=== PATIENT | female | born 1940 | race Caucasian/White ===

== ENCOUNTER 2019-02-02 08:45 | Inpatient (IN) ==
[~2019-02-02 08:45] MED LIST: RAPID SEQUENCE INDUCTION BAG ONE
[2019-02-02] MEDS ORDERED: methylPREDNISolone 125 MG/2 ML VIAL IV STA (08:55)
[2019-02-02] MEDS ORDERED: LORazepam 1 MG/2 ML VIAL IV STA (08:55)
[2019-02-02] MEDS ORDERED: NITROGLYCERIN/D5W 100 MCG/ML BTL ONE (08:59)
[2019-02-02] MEDS ORDERED: NITROGLYCERIN/D5W 100MCG/ML 250 ML IV SCH (09:00)
[2019-02-02 09:12] LABS: iSTAT Creatinine 2.6 mg/dl (0.6-1.3); iSTAT Hemoglobin 13.3 g/dl (12.0-16.0); iSTAT Ionized Calcium 1.18 mmol/l (1.12-1.32); iSTAT Potassium 4.1 mEq/L (3.3-5.0)
[2019-02-02 09:17] LABS: Hematocrit (blood only) 39.5 % (37-47); Hemoglobin 12.6 g/dL (12.0-16.0); Mean Corpuscular Hemoglobin 30.1 pg (25-34); Mean Corpuscular Hgb Conc 31.9 g/dL (32-36); Mean Corpuscular Volume 94.3 fL (80-100); Mean Platelet Volume 11.1 fL (7.4-10.4); Platelet Count 429 K/uL (130-400); RDW Coefficient of Variation 14.3 % (11.5-14.5); RDW Standard Deviation 48.9 fL (36.4-46.3); Red Blood Count 4.19 M/uL (4.2-5.4); White Blood Count 16.42 K/uL (4.8-10.8)
[2019-02-02] MEDS ORDERED: PROPOFOL IV EMULSION 10 MG/ML 100 ML VIAL IV ONE (09:25)
[2019-02-02 09:32] LABS: iSTAT Arterial Blood Gas HCO3 16 meg/L (19-24); iSTAT Arterial Blood Gas pCO2 44 mmHg (35-46); iSTAT Arterial Blood Gas pH 7.18 (7.35-7.45); iSTAT Arterial Blood Gas pO2 61 mmHg (80-95); iSTAT Carbon Dioxide 18 mEq/l (24-31); iSTAT Hematocrit 36 % (37-47); iSTAT Hemoglobin 12.2 g/dl (12.0-16.0); iSTAT Potassium 3.7 mEq/L (3.3-5.0); iSTAT Sodium 138 mEq/L (135-144)
[2019-02-02 09:33] LABS: Alanine Aminotransferase 12 U/L (12-78); Albumin Level 3.3 gm/dl (3.4-5.0); Aspartate Aminotransferase 19 U/L (15-37); BUN Creatinine Ratio 9.7 (10-20); Bilirubin Direct 0.1 mg/dl (0-0.2); Blood Urea Nitrogen 24 mg/dl (7-18); Calcium 9.1 mg/dl (8.5-10.1); Carbon Dioxide 17 mmol/L (21-32); Chloride 107 mmol/L (98-107); Est GFR (African American) 21.5; Est GFR (Non-African American) 18.6; Glucose 285 mg/dl (70-99); Lipase 198 U/L (73-393); Magnesium 2.2 mg/dl (1.8-2.4); Sodium 135 mmol/L (136-145)
[2019-02-02 09:38] LABS: Alkaline Phosphatase 180 U/L (45-117); Bilirubin,Total 0.5 mg/dl (0.2-1); NT Pro B Type Natriuretic Pept 1456 pg/ml (0-1800); Total Protein 8.7 gm/dl (6.4-8.2); Troponin I < 0.015 ng/ml (0-0.045)
[2019-02-02 09:41] LABS: Basophils # (auto) 0.04 K/uL (0-0.2); Basophils % (auto) 0.2 %; Eosinophils # (auto) 0.55 K/uL (0-0.5); Eosinophils % (auto) 3.3 %; Immature Granulocytes # (auto) 0.06 K/uL (0.00-0.02); Immature Granulocytes % (auto) 0.4 %; Lymphocytes % (auto) 31.7 %; Monocytes # (auto) 1.13 K/uL (0.11-0.59); Monocytes % (auto) 6.9 %; Neutrophils # (auto) 9.44 K/uL (1.4-6.5); Neutrophils % (auto) 57.5 %
--- NOTE | 2019-02-02 09:42 | XRay Report ---
XR chest 1V portable CLINICAL HISTORY: 79 years-old Female presenting with sunitha. TECHNIQUE: Portable upright AP view of the chest was obtained. COMPARISON: 02/02/2019 at 8:52 a.m.. FINDINGS: Endotracheal tube terminates in the mid thoracic trachea. Cardiomediastinal silhouette normal. Diffus e opacities throughout both lungs with bronchial wall thickening similar to prior. No large pleural e ffusion or pneumothorax. Degenerative changes of the thoracic spine. Upper abdomen normal. IMPRESSION: 1. Appropriately positioned endotracheal tube. 2. Similar appearance of diffuse pulmonary infiltrates likely moderate pulmonary edema, multifocal i nfection, or diffuse alveolar damage. Electronically signed by: Diego Collins M.D. 02/02/2019 9:40 AM
--- NOTE | 2019-02-02 09:53 | XRay Report ---
XR chest 1V portable CLINICAL HISTORY: Respiratory distress COMPARISON STUDY: No previous studies for comparison. FINDINGS: The heart is at the upper limits of normal in size. There are diffuse bilateral pulmonary a irspace opacities. Diagnostic considerations include pulmonary edema, multifocal pneumonia, or diffus e alveolar hemorrhage.[ IMPRESSION: Diffuse bilateral pulmonary airspace opacities. Electronically signed by: Vlad Campa M.D. 02/02/2019 9:30 AM
[2019-02-02 09:55] LABS: INR 1.1 (0.9-1.1); Prothrombin Time 11.1 Seconds (9.0-12.0)
[2019-02-02] MEDS ORDERED: fentaNYL DRIP 1,250 MCG/250 ML BAG IV SCH (10:00)
[2019-02-02 10:17] LABS: Influenza A virus by PCR Neg for Influ A (Neg); Influenza B virus by PCR Neg for Influ B (Neg)
[2019-02-02] MEDS ORDERED: CEFEPIME 2,000 MG/20 ML VIAL IV STA (10:19)
[2019-02-02] MEDS ORDERED: VANCOMYCIN HCL 1,750 MG in SODIUM CHLORIDE 0.9% 500 ML IV ONE (10:19)
[2019-02-02] MEDS ORDERED: VANCOMYCIN CONSULT ACTIVE PRN (10:19)
[2019-02-02 10:56] LABS: D Dimer 1800 ug/L FEU (0-500)
--- NOTE | 2019-02-02 11:55 | History & Physical Report ---
Date of Service February 02, 2019 Assessment & Plan (1) Admitted to intensive care unit: (2) Acute respiratory failure with hypoxia: (3) Respiratory acidosis: (4) Lactic acidemia: This is a 79-year-old female who has significant past medical history of COPD, chronic diastolic CHF, hypertension, CKD stage IV baseline creatinine 2.02.4, anemia of renal disease, psoriatic arthritis, PMR, secondary hyperparathyroidism, history of MGUS who presents to [facility] ED secondary to respiratory distress. In ED patient presented in respiratory distress requiring eventual mechanical intubation Lab work revealed elevated WBC 16 point 4K, H&H 12.6 and 39.5, platelet 429 ref erred neutrophilia, lymphocytosis and eosinophilia Initial blood gas revealed pH 7.18, bicarb 16, PCO2 44, elevated methylhemoglobin 2.7 BUN/creatinine stable at 24 and 2.43, glucose 285, initial lactate elevated at 5.7 with repeat of 2.0, troponin WNL, proBNP 1456 Influenza negative Pt with acute hypoxic respiratory failure with respiratory acidosis, lactic acidosis, elevated methylhemoglobin of uncertain etiology ddx: Decompensated CHF, myocardial ischemia, PE, infectious PNA, diffuse alveolar hemorrhage among other etiologies please defer to aircraft electrician consultation for further assessment and management (5) CHF (congestive heart failure): LVEF 68%, grade 2 diastolic dysfunction, mild concentric LVH, left atrium mildly enlarged, mild aortic valve sclerosis and mild AV regurg present echo 09/2017 Stat echo ordered defer management to [employer] (6) CAD (coronary artery disease): according to [facility] records pt presented to [place] hosp 08/26 2/2 acute on SOB and found to have elevated troponin Underwent cardiac cath which revealed chronic occluded RCA as well as obtuse marginal disease, recommended medical management on ASA, statin, coreg as outpt stat echocardiogram ordered trend troponin q4h (7) HTN (hypertension): pt significantly hypertensive in ED, likely in setting of recent mechanical ventilation titration of anesthetic per attending, improving pt on amlodipine, coreg as outpt defer management to aircraft electrician (8) CKD (chronic kidney disease), stage IV: baseline cr 2.3-2.4 bun/cr 24/2.43 follow bmp low threshold for nephro consult (9) Psoriatic arthritis: on leflunomide as outpt (10) DVT prophylaxis: per ICU team Disposition: admit to ICU Follow up: PCP Dr. Restrepo upon discharge Pt was seen and examined in collaboration with Dr. Rivero, please see addendum Discussed case with ED provider Dr. Camilo as well as ICU Resident History of Present Illness Chief Complaint: Respiratory distress possible. Primary Care Provider: Dr. Christopher Restrepo MD This is a 79-year-old female who has significant past medical history of COPD, chronic diastolic CHF, hypertension, CKD stage IV baseline creatinine 2.02.4, anemia of renal disease, psoriatic arthritis, PMR, secondary hyperparathyroidism, history of MGUS who presents to [facility] ED secondary to respiratory distress. Unable to obtain ROS from patient she is currently intubated in ED. 2 very close friends are at bedside. Apparently friend was taking patient to outpatient dermatology appointment today. She was in her normal state of health prior to arrival at this appointment. When patient went back to exam room she developed acute respiratory distress with diaphoresis. They placed her on oxygen and called EMS. EMS arrived and they placed her on CPAP with initial oxygen saturations in the 50s and 60s. She received 5 sprays of nitro in route. Upon arrival to ED she did continued to be in respiratory distress. Despite manual bagging and BiPAP as they were still unable to maintain oxygen saturation greater than 80%. Because of this she was mechanically intubated. Per ED provider she was a very tough intubation but eventually was successful. According to patient patient friend she is very active and independent for age. She lives alone at home, still drives and mows her own grass. According to friend she has not been having any difficulty prior to today. No chest pain or SOB or respiratory symptoms. No recent illness they are aware of. Allergies Allergy/AdvReac Type Severity Reaction Status Date / Time tramadol [From Ultram] AdvReac Intermediate Nausea Verified 02/02/19 12:45 furosemide AdvReac Unknown rash Verified 02/02/19 12:45 Home Medications Home Medications Medication Instructions Recorded Confirmed Type acetaminophen [Tylenol Extra 500 mg PO Q6H PRN 02/02/19 02/02/19 History Strength] amlodipine 10 mg PO DAILY 02/02/19 02/02/19 History aspirin 81 mg PO DAILY 02/02/19 02/02/19 History atorvastatin 80 mg PO DAILY 02/02/19 02/02/19 History carvedilol 12.5 mg PO BID 02/02/19 02/02/19 History cholecalciferol (vitamin D3) 1,000 unit PO DAILY 02/02/19 02/02/19 History [Vitamin D3] citalopram 10 mg PO DAILY 02/02/19 02/02/19 History cyanocobalamin (vitamin B-12) 1,000 mcg PO DAILY 02/02/19 02/02/19 History furosemide 20 mg PO DAILY PRN 02/02/19 02/02/19 History isosorbide mononitrate 30 mg PO DAILY 02/02/19 02/02/19 History leflunomide 10 mg PO DAILY 02/02/19 02/02/19 History levothyroxine 150 mcg PO DAILY 02/02/19 02/02/19 History loratadine [Claritin] 10 mg PO DAILY PRN 02/02/19 02/02/19 History nitroglycerin [Nitrostat] 0.4 mg SUBLINGUAL UD 02/02/19 02/02/19 History pseudoephedrine-guaifenesin 1 tab PO BID 02/02/19 02/02/19 History [Mucinex D] sodium bicarbonate 650 mg PO BID 02/02/19 02/02/19 History Past Med/Surg History Medical History (Updated 02/02/19 @ 13:19 by Daniel Camp DO) Anemia of renal disease CAD (coronary artery disease) per records cardiac cath in [place] when visiting 2/2 to acute CHF exacerbation. Revealed chronically occluded RCA as well as obtuse marginal management medically CHF (congestive heart failure) CKD (chronic kidney disease), stage IV History of heart attack HTN (hypertension) MGUS (monoclonal gammopathy of unknown significance) PMR (polymyalgia rheumatica) Psoriatic arthritis Right-sided extracranial carotid artery stenosis Secondary hyperparathyroidism Surgical History (Updated 02/02/19 @ 12:06 by Melva Valladares PA-C) History of D&C History of lymph node biopsy hx of sentinel lymph node bx History of partial mastectomy of right breast History of tonsillectomy and adenoidectomy History of tubal ligation Family History (Updated 02/02/19 @ 12:10 by Melva Valladares PA-C) Mother Coronary heart disease Father Hypertension Stroke Social History (Updated 02/02/19 @ 12:09 by Melva L. Pataky, PA-C) Preferred Language: Slovenian Communication Ability: Unable Beliefs That Will Affect Care: None Current Living Situation: Alone Feels Safe at Home: Yes Smoking Status: Never smoker Hx Alcohol Use: No (OCCASIONAL) Hx Substance Use: No Review of Systems Review of Systems: Unobtainable due to endotracheal tube and Unobtainable due to reduced consciousness Physical Exam Physical Exam: Constitutional: WD/WN, vitals as above, +intubated Head: Normocephalic, Atraumatic Eyes: Pupils equal b/l reactive to light, conjunctivae normal, anicteric sclerae ENMT: external ear and nose normal, oropharynx + ET Tube, + trauma to upper lip Neck: trachea midline, no thyromegaly normal visual inspection Respiratory: normal respiratory effort, lungs diminished b/l R > L bibasilar crackles R > L with crackles noted, no wheezing. Normal insp/exp effort, no accessory muscle use Cardiovascular: tachycardic rate, regular rhyhtm, no murmur, no edema Vessels: no JVD or carotid bruit Chest: normal inspection of chest Abdomen: obese abdomen, normal bowel sounds, soft, nontender, no hepa tosplenomegaly Musculoskeletal: no cyanosis or clubbing Skin: no rashes, warm and dry normal turgor Neurologic: unable to exam due to intubation Psychiatric: A+Ox3, euthymic affect Lymphatic: no cervical or axillary lymphadenopathy : deferred Results & Data Vital Signs (Past 12 Hours) Vital Signs Pulse Pulse Resp BP BP Pulse Ox 02/02/19 11:12 78 16 119/73 99 02/02/19 10:50 89 16 212/192 H 89 L 02/02/19 10:32 111 H 16 200/118 H 99 02/02/19 10:14 92 H 16 165/97 H 98 02/02/19 09:55 92 H 16 137/77 99 02/02/19 09:38 101 H 16 164/102 H 98 02/02/19 09:20 110 H 16 91 02/02/19 09:17 86 L 02/02/19 09:14 107 H 16 135/96 76 L 02/02/19 08:58 101 H 22 143/110 H 77 L 02/02/19 08:50 83 L 02/02/19 08:45 105 H 36 H 190/126 H Laboratory Results Short CBC 02/02/19 Range/Units 09:10 WBC 16.42 H (4.8-10.8) K/uL Hgb 12.6 (12.0-16.0) g/dL Hct 39.5 (37-47) % Plt Count 429 H (130-400) K/uL BMP 02/02/19 09:10 Sodium 135 L Potassium 4.0 Chloride 107 Carbon Dioxide 17 L BUN 24 H Creatinine 2.43 H Glucose 285 H Calcium 9.1 Cardiac Enzymes 02/02/19 Range/Units 09:10 Troponin I < 0.015 (0-0.045) ng/ml Liver Function 02/02/19 Range/Units 09:10 Total Bilirubin 0.5 (0.2-1) mg/dl Direct Bilirubin 0.1 (0-0.2) mg/dl AST 19 (15-37) U/L ALT 12 (12-78) U/L Alkaline Phosphatase 180 H (45-117) U/L Albumin 3.3 L (3.4-5.0) gm/dl Diagnostic Findings CXR: IMPRESSION: Diffuse bilateral pulmonary airspace opacities. Medications Administered Nitroglycerin/Dextrose (Nitroglycerin/D5w 100 Mcg/Ml) 250 mls @ 6 mls/hr IV .Q24H GOOD; Protocol Stop: 03/04/19 08:59 Last Admin: 02/02/19 09:50 Dose: Not Given Documented by: [id number] Fentanyl Citrate (Fentanyl Drip) 1,250 mcg in 250 mls @ 5 mls/hr IV .Q24H GOOD; Protocol Stop: 02/16/19 09:59 Last Admin: 02/02/19 10:25 Dose: 25 mcg/hr, 5 mls/hr Documented by: [id number] Cosigned by: [id number] Discontinued Medications Lorazepam (Ativan) 1 mg in 2 mls @ 2 mls/min IV NOW STA Stop: 02/02/19 08:56 Last Admin: 02/02/19 08:56 Dose: 2 mls/min Documented by: [id number] Methylprednisolone (Solumedrol) 125 mg IV NOW STA Stop: 02/02/19 08:56 Last Admin: 02/02/19 09:47 Dose: 125 mg Documented by: [id number] Miscellaneous () Confirm Administered Dose 1 ea .ROUTE .STK-MED ONE Stop: 02/02/19 08:42 Last Admin: 02/02/19 08:48 Dose: 1 ea Documented by: [id number] Nitroglycerin/Dextrose (Nitroglycerin/D5w 100 Mcg/Ml) Confirm Administered Dose 25 mg .ROUTE .STK-MED ONE Stop: 02/02/19 09:00 Last Admin: 02/02/19 09:50 Dose: Not Given Documented by: [id number] Propofol (Diprivan) Confirm Administered Dose 1,000 mg IV .STK-MED ONE Stop: 02/02/19 09:26 Last Admin: 02/02/19 09:35 Dose: 1,000 mg Documented by: [id number] Cosigned by: [id number] ECG Rate (beats per minute): 94 Findings: + RBBB, + ST depression and + T-wave inversion Additional Comments: T wave inversions V2-V4 ST wave depression anterior, laterally Code Status & VTE Plan Code Status Full Code VTE Prophylaxis Plan VTE Prophylaxis will be ordered: Yes Supervising Physician Co-Signing Physician Notes I have seen and examined the patient and have discussed the case with the provider above. I agree with the assessment and plan as stated with the following exceptions. 79-year-old female with a history of coronary artery disease presented with acute hypoxic respiratory failure without any prodromal symptoms that are known. Clinical exam and imaging studies reveal volume overload and a picture consistent with CHF. At this point in the addendum her echocardiogram is back revealing a reduced ejection fraction at 35 to 40%. Troponin is negative. EKG revealed sinus rhythm with a rate of 94 and a right bundle branch block. There was no evidence of acute ST changes or other evidence of acute ischemia. D-dimer was elevated to 1800 and renal injury prevents further imaging with CTA of the chest. She was empirically placed on heparin. She was intubated in the ER and placed into the ICU for further work- up and care. She was noted to be hypertensive in the ER, however this was after induction with etomidate 20 mg and sedation with propofol and fentanyl without bolus. She was bolused an additional 50 mcg of fentanyl IV and her blood pressure improved. Although a nitro drip was initially considered in the setti ng of CHF exacerbation she had already received 5 sprays of nitro sublingual en route to the hospital. Hypertension in the ER was likely secondary to inadequate anesthesia after induction. Physical exam revealed coarse rhonchi at the right base with clear lungs to auscultation on the left. Intubation and recently administered paralytic somewhat limited the exam. Heart exam revealed evidence of S1/S2 with no murmur heard. No peripheral edema was seen. My exam was otherwise consistent with that described above. She was started on Lasix 20 IV twice daily and continued on empiric broad-spectrum antibiotics started in the emergency department. Active issues include acute hypoxic respiratory failure secondary to suspected acute systolic heart failure in the setting of known cardiac disease versus acute PE (differential includes these but not limited to), CKD stage IV, hypertension. Continue ICU management of this patient. DO Mat
[2019-02-02] MEDS ORDERED: ICU PROTOCOL FOR HYPERGLYCEMIA PRN (11:57)
[2019-02-02] MEDS ORDERED: ASPIRIN/ALUM/MAGNES/CAL CARB 325 MG TAB PO ONE (12:00)
[2019-02-02] MEDS: PROPOFOL 1,000 MG/100 ML VIAL IV SCH (12:19)
--- NOTE | 2019-02-02 12:34 | Cardiology Consultation ---
Date of Consultation February 02, 2019 Assessment & Plan (1) Acute respiratory failure with hypoxia: (2) CKD (chronic kidney disease), stage IV: (3) History of heart attack: (4) Diastolic heart failure secondary to hypertension: I think this patient has developed pulmonary edema on the basis of hypertension, diastolic dysfunction and chronic renal disease. Her EKG shows a new right bundle branch block when compared to previous, but at this time I do not believe we are dealing with acute coronary syndrome. Pulmonary emboli is a possibility but I think unlikely. She will have an echocardiogram completed which I will review and if she shows right heart failure with strain then a d iagnostic work-up should be completed for an embolic event. I would provide medical management for her respiratory failure. She will have cardiac markers drawn which I will review. Further recommendations following the above. History of Present Illness Attending Physician: Dinora Rivero, DO History of Present Illness This is a 79-year-old female with a history of chronic diastolic heart failure and renal insufficiency. She has followed with Dr. Sims at [facility]. According to his records, the patient was in [place] in the summer 2017 visiting with some friends when she suddenly developed acute shortness of breath. She was taken to the hospital there and had an elevation in her cardiac markers and eventually underwent a cardiac catheterization that showed a chronically occluded right coronary artery and minor disease of the obtuse marginal branch from the left circumflex. At that time medical management was recommended. In September 2017 the patient had a echocardiogram performed which revealed a left ventricular hypertrophy, preserved left ventricular systolic function with an estimated left ventricular ejection fraction of 60% and chronic type II diastolic dysfunction. The patient has chronic stage IV kidney disease and is followed by nephrology at [facility]. She was in her usual state of health today. Her friend went with her to see a [facility] surgeon and while there she suddenly developed respiratory distress. She was intubated and now is admitted to the ICU. Information is taken from the medical record and from her friend. She has no history of diabetes, COPD, previous embolic events, or strokes. She was an occasional smoker up until 2018. She currently is hemodynamically stable on the ventilator. Allergies Allergy/AdvReac Type Severity Reaction Status Date / Time tramadol [From Ultram] AdvReac Intermediate Nausea Verified 02/02/19 12:45 furosemide AdvReac Unknown rash Verified 02/02/19 12:45 Home Medications Home Medications Medication Instructions Recorded Confirmed Type acetaminophen [Tylenol Extra 500 mg PO Q6H PRN 02/02/19 02/02/19 History Strength] amlodipine 10 mg PO DAILY 02/02/19 02/02/19 History aspirin 81 mg PO DAILY 02/02/19 02/02/19 History atorvastatin 80 mg PO DAILY 02/02/19 02/02/19 History carvedilol 12.5 mg PO BID 02/02/19 02/02/19 History cholecalciferol (vitamin D3) 1,000 unit PO DAILY 02/02/19 02/02/19 History [Vitamin D3] citalopram 10 mg PO DAILY 02/02/19 02/02/19 History cyanocobalamin (vitamin B-12) 1,000 mcg PO DAILY 02/02/19 02/02/19 History furosemide 20 mg PO DAILY PRN 02/02/19 02/02/19 History isosorbide mononitrate 30 mg PO DAILY 02/02/19 02/02/19 History leflunomide 10 mg PO DAILY 02/02/19 02/02/19 History levothyroxine 150 mcg PO DAILY 02/02/19 02/02/19 History loratadine [Claritin] 10 mg PO DAILY PRN 02/02/19 02/02/19 History nitroglycerin [Nitrostat] 0.4 mg SUBLINGUAL UD 02/02/19 02/02/19 History pseudoephedrine-guaifenesin 1 tab PO BID 02/02/19 02/02/19 History [Mucinex D] sodium bicarbonate 650 mg PO BID 02/02/19 02/02/19 History Patient History Medical History (Updated 02/02/19 @ 13:19 by Daniel Camp DO) Anemia of renal disease CAD (coronary artery disease) per records cardiac cath in [place] when visiting 2/2 to acute CHF exacerbation. Revealed chronically occluded RCA as well as obtuse marginal management medically CHF (congestive heart failure) CKD (chronic kidney disease), stage IV History of heart attack HTN (hypertension) MGUS (monoclonal gammopathy of unknown significance) PMR (polymyalgia rheumatica) Psoriatic arthritis Right-sided extracranial carotid artery stenosis Secondary hyperparathyroidism Surgical History (Updated 02/02/19 @ 12:06 by Melva Valladares PA-C) History of D&C History of lymph node biopsy hx of sentinel lymph node bx History of partial mastectomy of right breast History of tonsillectomy and adenoidectomy History of tubal ligation Family History (Updated 02/02/19 @ 12:10 by Melva Valladares PA-C) Mother Coronary heart disease Father Hypertension Stroke Social History (Updated 02/02/19 @ 12:09 by Melva Valladares PA-C) Preferred Language: Guatemalan Communication Ability: Effective Beliefs That Will Affect Care: None Current Living Situation: Alone Feels Safe at Home: Yes Smoking Status: Never smoker Hx Alcohol Use: No (OCCASIONAL) Hx Substance Use: No Results & Data Vital Signs (Past 12 Hours) Vital Signs Pulse Pulse Resp BP BP Pulse Ox 02/02/19 12:15 59 L 109/64 96 02/02/19 11:45 61 16 100 02/02/19 11:38 71 21 145/76 H 98 02/02/19 11:21 66 16 92/63 L 98 02/02/19 11:14 70 16 119/73 99 02/02/19 11:12 78 16 119/73 99 02/02/19 10:50 89 16 212/192 H 89 L 02/02/19 10:32 111 H 16 200/118 H 99 02/02/19 10:14 92 H 16 165/97 H 98 02/02/19 09:55 92 H 16 137/77 99 02/02/19 09:38 101 H 16 164/102 H 98 02/02/19 09:20 110 H 16 91 02/02/19 09:17 86 L 02/02/19 09:14 107 H 16 135/96 76 L 02/02/19 08:58 101 H 22 143/110 H 77 L 02/02/19 08:50 83 L 02/02/19 08:45 105 H 36 H 190/126 H Laboratory Results Laboratory Results - last 24 hr 02/02/19 02/02/19 02/02/19 08:56 08:59 09:00 WBC RBC Hgb POC Hgb 13.3 Hct POC Hct 39 MCV MCH MCHC RDW Std Deviation RDW Coeff of Rosa Plt Count MPV Immature Gran % (Auto) Neut % (Auto) Lymph % (Auto) Edwards % (Auto) Eos % (Auto) Baso % (Auto) Immature Gran # (Auto) Neut # (Auto) Lymph # (Auto) Edwards # (Auto) Eos # (Auto) Baso # (Auto) Blood Smear Review PT INR APTT PTT Ratio D-Dimer POC pH POC pCO2 POC pO2 POC HCO3 POC Base Excess Methemoglobin POC Sodium 139 Sodium POC Potassium 4.1 Potassium POC Chloride 107 Chloride Carbon Dioxide POC Total CO2 20 L Anion Gap POC Anion Gap 16.0 POC BUN 24 H BUN Creatinine POC Creatinine 2.6 H Est Cr Clr Drug Dosing Est GFR ( Amer) Est GFR (Non-Af Amer) BUN/Creatinine Ratio Glucose POC Glucose POC Glucose (other) 285 H Lactate 5.2 H* Calcium POC Ioniz Calcium Neeraj 1.18 Magnesium Total Bilirubin Direct Bilirubin AST ALT Alkaline Phosphatase POC Troponin I Troponin I NT-Pro-B Natriuret Pep Total Protein Albumin Lipase Procalcitonin Nasal Screen MRSA (PCR) Digoxin Influenza Type A (PCR) Influenza Type B (PCR) Flow Cytometry Comment Pending 02/02/19 02/02/19 02/02/19 09:00 09:01 09:10 WBC 16.42 H RBC 4.19 L Hgb 12.6 POC Hgb 12.2 Hct 39.5 POC Hct 36 L MCV 94.3 MCH 30.1 MCHC 31.9 L RDW Std Deviation 48.9 H RDW Coeff of Rosa 14.3 Plt Count 429 H MPV 11.1 H Immature Gran % (Auto) 0.4 Neut % (Auto) 57.5 Lymph % (Auto) 31.7 Edwards % (Auto) 6.9 Eos % (Auto) 3.3 Baso % (Auto) 0.2 Immature Gran # (Auto) 0.06 H Neut # (Auto) 9.44 H Lymph # (Auto) 5.20 H Edwards # (Auto) 1.13 H Eos # (Auto) 0.55 H Baso # (Auto) 0.04 Blood Smear Review PT INR APTT PTT Ratio D-Dimer POC pH 7.18 L* POC pCO2 44 POC pO2 61 L POC HCO3 16 L POC Base Excess -12.0 L Methemoglobin POC Sodium 138 Sodium POC Potassium 3.7 Potassium POC Chloride Chloride Carbon Dioxide POC Total CO2 18 L Anion Gap POC Anion Gap POC BUN BUN Creatinine POC Creatinine Est Cr Clr Drug Dosing Est GFR ( Amer) Est GFR (Non-Af Amer) BUN/Creatinine Ratio Glucose POC Glucose POC Glucose (other) Lactate Calcium POC Ioniz Calcium Neeraj Magnesium Total Bilirubin Direct Bilirubin AST ALT Alkaline Phosphatase POC Troponin I < 0.03 Troponin I NT-Pro-B Natriuret Pep Total Protein Albumin Lipase Procalcitonin Nasal Screen MRSA (PCR) Digoxin Influenza Type A (PCR) Influenza Type B (PCR) Flow Cytometry Comment 02/02/19 02/02/19 02/02/19 09:10 09:10 09:10 WBC RBC Hgb POC Hgb Hct POC Hct MCV MCH MCHC RDW Std Deviation RDW Coeff of Rosa Plt Count MPV Immature Gran % (Auto) Neut % (Auto) Lymph % (Auto) Edwards % (Auto) Eos % (Auto) Baso % (Auto) Immature Gran # (Auto) Neut # (Auto) Lymph # (Auto) Edwards # (Auto) Eos # (Auto) Baso # (Auto) Blood Smear Review PT 11.1 INR 1.1 APTT 26.0 PTT Ratio 1.0 D-Dimer 1800 H* POC pH POC pCO2 POC pO2 POC HCO3 POC Base Excess Methemoglobin POC Sodium Sodium 135 L POC Potassium Potassium 4.0 POC Chloride Chloride 107 Carbon Dioxide 17 L POC Total CO2 Anion Gap 11.0 POC Anion Gap POC BUN BUN 24 H Creatinine 2.43 H POC Creatinine Est Cr Clr Drug Dosing 22.0 Est GFR ( Amer) 21.5 Est GFR (Non-Af Amer) 18.6 BUN/Creatinine Ratio 9.7 L Glucose 285 H POC Glucose POC Glucose (other) Lactate Calcium 9.1 POC Ioniz Calcium Neeraj Magnesium 2.2 Total Bilirubin 0.5 Direct Bilirubin 0.1 AST 19 ALT 12 Alkaline Phosphatase 180 H POC Troponin I Troponin I < 0.015 NT-Pro-B Natriuret Pep 1456 Total Protein 8.7 H Albumin 3.3 L Lipase 198 Procalcitonin Nasal Screen MRSA (PCR) Digoxin Influenza Type A (PCR) Influenza Type B (PCR) Flow Cytometry Comment 02/02/19 02/02/19 02/02/19 09:40 09:40 09:56 WBC RBC Hgb POC Hgb Hct POC Hct MCV MCH MCHC RDW Std Deviation RDW Coeff of Rosa Plt Count MPV Immature Gran % (Auto) Neut % (Auto) Lymph % (Auto) Edwards % (Auto) Eos % (Auto) Baso % (Auto) Immature Gran # (Auto) Neut # (Auto) Lymph # (Auto) Edwards # (Auto) Eos # (Auto) Baso # (Auto) Blood Smear Review PT INR APTT PTT Ratio D-Dimer POC pH POC pCO2 POC pO2 POC HCO3 POC Base Excess Methemoglobin Cancelled 2.7 H POC Sodium Sodium POC Potassium Potassium POC Chloride Chloride Carbon Dioxide POC Total CO2 Anion Gap POC Anion Gap POC BUN BUN Creatinine POC Creatinine Est Cr Clr Drug Dosing Est GFR ( Amer) Est GFR (Non-Af Amer) BUN/Creatinine Ratio Glucose POC Glucose POC Glucose (other) Lactate Calcium POC Ioniz Calcium Neeraj Magnesium Total Bilirubin Direct Bilirubin AST ALT Alkaline Phosphatase POC Troponin I Troponin I NT-Pro-B Natriuret Pep Total Protein Albumin Lipase Procalcitonin Nasal Screen MRSA (PCR) Digoxin Influenza Type A (PCR) Neg for Influ A Influenza Type B (PCR) Neg for Influ B Flow Cytometry Comment 02/02/19 02/02/19 02/02/19 10:20 10:20 11:42 WBC RBC Hgb POC Hgb Hct POC Hct MCV MCH MCHC RDW Std Deviation RDW Coeff of Rosa Plt Count MPV Immature Gran % (Auto) Neut % (Auto) Lymph % (Auto) Edwards % (Auto) Eos % (Auto) Baso % (Auto) Immature Gran # (Auto) Neut # (Auto) Lymph # (Auto) Edwards # (Auto) Eos # (Auto) Baso # (Auto) Blood Smear Review PT INR APTT PTT Ratio D-Dimer POC pH POC pCO2 POC pO2 POC HCO3 POC Base Excess Methemoglobin POC Sodium Sodium POC Potassium Potassium POC Chloride Chloride Carbon Dioxide POC Total CO2 Anion Gap POC Anion Gap POC BUN BUN Creatinine POC Creatinine Est Cr Clr Drug Dosing Est GFR ( Amer) Est GFR (Non-Af Amer) BUN/Creatinine Ratio Glucose POC Glucose 151 H POC Glucose (other) Lactate 2.0 Calcium POC Ioniz Calcium Neeraj Magnesium Total Bilirubin Direct Bilirubin AST ALT Alkaline Phosphatase POC Troponin I Troponin I NT-Pro-B Natriuret Pep Total Protein Albumin Lipase Procalcitonin Nasal Screen MRSA (PCR) Digoxin 0.1 L Influenza Type A (PCR) Influenza Type B (PCR) Flow Cytometry Comment 02/02/19 02/02/19 11:45 12:15 WBC RBC Hgb POC Hgb Hct POC Hct MCV MCH MCHC RDW Std Deviation RDW Coeff of Rosa Plt Count MPV Immature Gran % (Auto) Neut % (Auto) Lymph % (Auto) Edwards % (Auto) Eos % (Auto) Baso % (Auto) Immature Gran # (Auto) Neut # (Auto) Lymph # (Auto) Edwards # (Auto) Eos # (Auto) Baso # (Auto) Blood Smear Review PT INR APTT PTT Ratio D-Dimer POC pH POC pCO2 POC pO2 POC HCO3 POC Base Excess Methemoglobin POC Sodium Sodium POC Potassium Potassium POC Chloride Chloride Carbon Dioxide POC Total CO2 Anion Gap POC Anion Gap POC BUN BUN Creatinine POC Creatinine Est Cr Clr Drug Dosing Est GFR ( Amer) Est GFR (Non-Af Amer) BUN/Creatinine Ratio Glucose POC Glucose POC Glucose (other) Lactate Calcium POC Ioniz Calcium Neeraj Magnesium Total Bilirubin Direct Bilirubin AST ALT Alkaline Phosphatase POC Troponin I Troponin I NT-Pro-B Natriuret Pep Total Protein Albumin Lipase Procalcitonin Pending Nasal Screen MRSA (PCR) Pending Digoxin Influenza Type A (PCR) Influenza Type B (PCR) Flow Cytometry Comment Diagnostic Findings Echocardiogram September 2017: Interpretation Summary Calculated LV ejection Fraction = 68% (biplane method of discs). The left ventricular cavity size is normal. The LV wall thickness is mildly increased (concentric). There is no left ventricular mural thrombus. The left ventricular wall motion is normal. The left ventricular diastolic function is moderately abnormal (grade II). Medications Administered Current Inpatient Medications Fentanyl Citrate (Fentanyl Drip) 1,250 mcg in 250 mls @ 5 mls/hr IV .Q24H GOOD; Protocol Stop: 02/16/19 09:59 Last Admin: 02/02/19 10:25 Dose: 25 mcg/hr, 5 mls/hr Documented by: Propofol (Diprivan) 1,000 mg in 100 mls @ 2.61 mls/hr IV .Q24H GOOD; Protocol Stop: 02/05/19 09:59 Last Admin: 02/02/19 12:19 Dose: 5 mcg/kg/min, 2.6 mls/hr Documented by: Vancomycin HCl 1,750 mg/ (Sodium Chloride) 535 mls @ 200 mls/hr IV NOW ONE Stop: 02/02/19 12:59 Last Admin: 02/02/19 12:19 Dose: 200 mls/hr Documented by: Heparin Sodium/Dextrose (Heparin Sodium/Dextrose) 25,000 units in 500 mls @ 26 mls/hr IV .[id number] GODO; Protocol Stop: 03/04/19 11:44 Miscellaneous (Icu Protocol For Hyperglycemia) 1 ea N/A PRN PRN; Protocol PRN Reason: Hyperglycemia Protocol Stop: 02/04/19 11:56 Miscellaneous Information (Consult) 1 ea N/A UD PRN PRN Reason: Consult Stop: 03/04/19 10:18
[2019-02-02] MEDS ORDERED: ASPIRIN 300 MG SUPP PR ONE (12:56)
[2019-02-02] MEDS ORDERED: HEPARIN IV BOLUS 6,000 UNITS in SYRINGE 0 ML IV ONE (13:00)
[2019-02-02] MEDS ORDERED: CEFEPIME 2,000 MG in SYRINGE 7.5 ML IV ONE (13:00)
[2019-02-02] MEDS: HEPARIN SODIUM/DEXTROSE 25,000 UNITS/500 ML BAG IV SCH (13:03)
[2019-02-02] MEDS ORDERED: ASPIRIN 81 MG CHEW PO ONE (13:16)
--- NOTE | 2019-02-02 13:23 | History & Physical Report ---
Date of Service February 02, 2019 Assessment & Plan (1) Acute respiratory failure with hypoxia: Reason Critically Ill: 79-year-old female here with a PMHx significant for CKD4 (bl Cr ~2.4), dCHF, ND 2018 managed medically, MGUS dx 2002, and psoriatic arthritis who presented with shortness of breath and hypoxia and who was admitted for acute hypoxic respiratory failure requiring mechanical ventilation. Neuro - [facility] ICU: POSITIVE ETT in place. Sedation: Propofol 5mcg/kg/hr Analgesia: Fentanyl 25mcg/hr Cardiac - Acute ST Changes, acute pulmonary edema suspicious for ACS with known CAD - EKG: ?St changes ~1mm in II, avR, V4, V5 and new RBBB compared to 2018. - Initial troponin negative. - s/p ASA x1, Nitro x5 (minimal improvement) - Pt had a similar presentation in 2018 with [facility]. Cardiac Cath showed RCA and Marginal occlusion medically managed (no stents/bipass). - Trend troponin x3 total q8h - Cardiology consulted. - Heparin gtt with bolus. Continue x24 hours. - TTE shows no new wall motion abnormality. Trend trops and continu heparin 24hrs as above. Consider stress/cath as outpt once stable - Continue atorvastatin 80mg daily HTN - Continue KNOT BORER amlodipine 10mg daily - Continue carvedilol 12.5mg PO BID, hold for sBP<100 or HR<60 - Goal Systolic BP <140, Diastolic <110 Respiratory - Acute Hypoxic Respiratory Failure 2/2 suspect AoC-dCHF, ddx includes ACS - Cardiac evaluation as above - AC/VC rate 16, vol 450, ratio 1:4.2, peep 12 - Lasix 20mg IV BID (home dose 20mg PO). Trend Cr. Strict I&Os - PNA unlikely given acute presentation. Recieved empiric Vanc/Cefepime in ED. Procal negative, bronch sample sent for culture. - No Abx at this time, if fever curve uptrends or clincal concern increases then restart Cefepime. - MRSA nasal PCR negative. GI - NPO RENAL/LYTES - CKD4, baseline Cr ~2.4 - Cr 2.43, at baseline - No significant sodium or potassium derangement - Replace lytes as needed. - CMP daily - Fu intact Strict I&Os ENDO - No history of T2DM or prior antiglycemics ICU Hyperglycemia protocol Hypothyroidism - Continue levothyroxine 150mcg PO daily HEME - Stable H&H. Will monitor for any drops in the setting of Heparin gtt ID - Minimal concern for PNA, procal negative as noted in Respiratory. Blood cultures pending Sputum cultures pending Monitor fever curve. INTEGUMENTARY - Do not use R arm for IV access 2/2 hx of R lumpectomy No acute concerns LINES/IV ACCESS - PIVs intact. DVT PROPHYLAXIS - Heparin gtt Thank you for allowing us to be part of this patient's care. Please refer to Dr. Monte's documentation for any further recommendations. (2) Admitted to intensive care unit: (3) DVT prophylaxis: (4) Respiratory acidosis: (5) Diastolic heart failure secondary to hypertension: (6) Psoriatic arthritis: (7) Anemia of renal disease: (8) CAD (coronary artery disease): (9) HTN (hypertension): (10) PMR (polymyalgia rheumatica): History of Present Illness Chief Complaint: Acute Hypoxic Respiratory Failure Primary Care Provider: NO PCP Patient is a 79-year-old female with a past medical history of CKD 4 baseline creatinine 2.4, diastolic CHF, MGUS diagnosed in 2002, history of ND in 2018 medically managed, and psoriatic arthritis who presented to the hospital in acute hypoxic respiratory failure requiring mechanical ventilation. Patient was at a dermatology appointment and an otherwise normal state of health per her friend when she developed sudden onset shortness of breath and diaphoresis. Unclear whether she had chest pain at the time. She was put on pulse oximetry and found to be at 60%. EMS was called, she was put on nasal cannula oxygen and remained at 60%. She is escalated to CPAP, and BiPAP without improvement in her oxygen saturation. She was intubated and demonstrated a slow rise in SPO2. Methemoglobin levels were drawn by the ED out of concern for her slow rise in oxygen saturation. Her methemoglobin levels were mildly elevated, she is not on any methemoglobin inducing medications. She is on isosorbide mononitrate which is known to enhance the effects of methemoglobinemia, but which is not known to independently induce methemoglobinemia. On admission to the emergency department she was in a respiratory acidosis with pH 7.18, PCO2 44, oxygen 61, HCO3 16, and total CO2 18. Her checks x-ray showed multifocal edema and diffuse pulmonary edema. Her rapid flu testing was negative. Her troponin was negative, and BNP was 1.4K. D-dimer was elevated at 1800, no CT was given due to renal function. Following intubation she was hypertensive to systolic over 200, she was given fentanyl and propofol for sedation and pain control and her blood pressure normalized. She was given 1 dose of empiric cefepime, vancomycin, and methylpred 125 mg IV. Procalcitonin was negative. Sputum cultures were sent. She has a history of a similar presentation to [facility] in August 2017. Cardiac cath at that time showed RCA and marginal disease which was treated medically. Her EKG at that time was normal without any signs of a left or right bundle branch block. EKG on admission to [facility] showed new right bundle branch block with some potential ST depressions and T wave inversions. Stat echocardiogram did not show any wall motion abnormalities. She has been transferred to the ICU for further care Allergies Allergy/AdvReac Type Severity Reaction Status Date / Time tramadol [From Ultram] AdvReac Intermediate Nausea Verified 02/02/19 12:45 furosemide AdvReac Unknown rash Verified 02/02/19 12:45 Home Medications Home Medications Medication Instructions Recorded Confirmed Type acetaminophen [Tylenol Extra 500 mg PO Q6H PRN 02/02/19 02/02/19 History Strength] amlodipine 10 mg PO DAILY 02/02/19 02/02/19 History aspirin 81 mg PO DAILY 02/02/19 02/02/19 History atorvastatin 80 mg PO DAILY 02/02/19 02/02/19 History carvedilol 12.5 mg PO BID 02/02/19 02/02/19 History cholecalciferol (vitamin D3) 1,000 unit PO DAILY 02/02/19 02/02/19 History [Vitamin D3] citalopram 10 mg PO DAILY 02/02/19 02/02/19 History cyanocobalamin (vitamin B-12) 1,000 mcg PO DAILY 02/02/19 02/02/19 History furosemide 20 mg PO DAILY PRN 02/02/19 02/02/19 History isosorbide mononitrate 30 mg PO DAILY 02/02/19 02/02/19 History leflunomide 10 mg PO DAILY 02/02/19 02/02/19 History levothyroxine 150 mcg PO DAILY 02/02/19 02/02/19 History loratadine [Claritin] 10 mg PO DAILY PRN 02/02/19 02/02/19 History nitroglycerin [Nitrostat] 0.4 mg SUBLINGUAL UD 02/02/19 02/02/19 History pseudoephedrine-guaifenesin 1 tab PO BID 02/02/19 02/02/19 History [Mucinex D] sodium bicarbonate 650 mg PO BID 02/02/19 02/02/19 History Past Med/Surg History Medical History (Updated 02/02/19 @ 13:19 by Daniel Camp DO) Anemia of renal disease CAD (coronary artery disease) per records cardiac cath in [place] when visiting 04/12 to acute CHF exacerbation. Revealed chronically occluded RCA as well as obtuse marginal management medically CHF (congestive heart failure) CKD (chronic kidney disease), stage IV History of heart attack HTN (hypertension) MGUS (monoclonal gammopathy of unknown significance) PMR (polymyalgia rheumatica) Psoriatic arthritis Right-sided extracranial carotid artery stenosis Secondary hyperparathyroidism Surgical History (Updated 02/02/19 @ 12:06 by Melva Valladares PA-C) History of D&C History of lymph node biopsy hx of sentinel lymph node bx History of partial mastectomy of right breast History of tonsillectomy and adenoidectomy History of tubal ligation Family History (Updated 02/02/19 @ 12:10 by Melva Valladares PA-C) Mother Coronary heart disease Father Hypertension Stroke Social History (Updated 02/02/19 @ 12:09 by Melva Valladares PA-C) Preferred Language: Korean Communication Ability: Unable Beliefs That Will Affect Care: None Current Living Situation: Alone Feels Safe at Home: Yes Smoking Status: Never smoker Hx Alcohol Use: No (OCCASIONAL) Hx Substance Use: No Review of Systems Review of Systems: Unobtainable due to endotracheal tube Physical Exam Physical Exam: General: ETT in place, sedated, squeezes fingers and opens eyes on command. HEENT: Cranium atraumatic, normocephalic. Upper lip swelling. Sclera non- icteric. No facial asymmetry. no nasolabial fold flatting/increased tone. PERLAA. Pulm: Breath sounds diffusely coarse R>L with increased bibasilar crackles. RUL trace end expiratory wheeze. Symmetrical chest rise. On mechanical vent. Cardiac: RRR, -mrg. Radial pulses intact and symmetrical. Abdominal: Nontender, nondistended, soft. BS present. Extremities: Cool, dry. PT pulse intact bilaterally. Results & Data Vital Signs (Past 12 Hours) Vital Signs Pulse Pulse Resp BP BP Pulse Ox 02/02/19 12:15 59 L 109/64 96 02/02/19 11:45 61 16 100 02/02/19 11:38 71 21 145/76 H 98 02/02/19 11:21 66 16 92/63 L 98 02/02/19 11:14 70 16 119/73 99 02/02/19 11:12 78 16 119/73 99 02/02/19 10:50 89 16 212/192 H 89 L 02/02/19 10:32 111 H 16 200/118 H 99 02/02/19 10:14 92 H 16 165/97 H 98 02/02/19 09:55 92 H 16 137/77 99 02/02/19 09:38 101 H 16 164/102 H 98 02/02/19 09:20 110 H 16 91 02/02/19 09:17 86 L 02/02/19 09:14 107 H 16 135/96 76 L 02/02/19 08:58 101 H 22 143/110 H 77 L 02/02/19 08:50 83 L 02/02/19 08:45 105 H 36 H 190/126 H Code Status & VTE Plan VTE Prophylaxis Plan VTE Prophylaxis will be ordered: Yes Supervising Physician Co-Signing Physician Notes Patient seen and examined. EMR reviewed. Discussed with family at bedside as well as with the ER staff and with cardiology at the bedside. Patient is a 79-year-old female with a history of diastolic dysfunction. She developed acute onset of shortness of breath at a dermatology appointment. She was brought to the emergency room. She was hypoxemic. She failed noninvasive positive pressure ventilation and was intubated by the ER staff. I was initially called to help with the intubation as they were unable to pass the tube but she was able to be intubated on my arrival. Patient was profoundly hypertensive on presentation. Once on mechanical ventilator she improved significantly. She was brought to the ICU. I assessed her immediately on arrival to the ICU. Peak airway pressures were normal. She was not bronchospastic. Chest x-ray demonstrated diffuse pulmonary infiltrates concerning for pulmonary edema. BNP was elevated. The patient had a similar presentation in [facility] several years ago. She had cardiac catheterization performed at that time showing a chronically occluded right coronary artery with diastolic dysfunction. Blood pressure control on diuretics and medical management were instituted. Impression: 79-year-old female with acute hypoxemic respiratory failure secondary to pulmonary edema, likely diastolic dysfunction. Recommendations: 1. Flash pulmonary edema: Continue mechanical ventilation. Diuresis as tolerated. Aggressive blood pressure control. If she does well SBT and plans for extubation in the morning. 2. Probable diastolic heart failure. Cannot rule out ischemia although it appears less likely based on her EKG. She does have a new right bundle. Serial troponins pending. Continue heparin for now. Follow-up echocardiogram. If echo is abnormal or rules in for ND, consideration for cardiac cath may be appropriate however it is appropriate to delay currently given her renal dysf unction. 3. Hypertensive emergency: Blood pressure much better controlled now that she is on a ventilator. Will use hydralazine and nitro as needed for afterload reduction. 4. Elevated methemoglobin: Of unclear significance. She is on nitrates at home. Review of her other medications did not reveal any other culprits. Doubt this has anything to do with her acute presentation. No indication for methylene blue. Will observe in the ICU for now and hopefully she can be liberated from the ventilator over the next 12 to 24hours. 55 minutes critical care time evaluating managing and stabilizing this patient with critical life-threatening illness Resident Activity Tracking Resident Involvement: Resident Care Provided Care Provided: Adult Hospital Medicine
--- NOTE | 2019-02-02 13:38 | Emergency Department Note ---
Entered by María Diop acting as a scribe for History of Present Illness General Chief complaint: Respiratory Distress Source: patient and EMS Mode of arrival: EMS Limitations: other (patient is in severe respiratory distress) History of Present Illness Onset (ago): hour(s) 2 Location: chest Radiation: non-radiation Pain Consistency: + constant Maximum Pain Intensity: 0 Relieved By: + other (Oxygen) Exacerbated By: + none Associated symptoms: + other (-abdominal pain); no chest pain, no cough and no fever/chills Treatments prior to arrival: other (C-pap) The patient is a 79 year old female who presents to the ED with complaints of respiratory distress. She was brought to the ED via EMS. EMS reports her respirations were around 50% when they got to her, and she was placed on 2L O2 via C-pap. She has a history of CHF and experienced a sudden onset of shortness of breath this morning while at an appointment at [facility], and EMS was called. She was given 5 Nitro Sprays intra-nasally in the field by EMS. EMS notes her pressures were in the 190s systolic. She is a former smoker. She denies any recent cough, fever or cold symptoms. She denies any chest pain or abdominal pain. Home Medications Home Medications Medication Instructions Recorded Confirmed Type acetaminophen [Tylenol Extra 500 mg PO Q6H PRN 02/02/19 02/02/19 History Strength] amlodipine 10 mg PO DAILY 02/02/19 02/02/19 History aspirin 81 mg PO DAILY 02/02/19 02/02/19 History atorvastatin 80 mg PO DAILY 02/02/19 02/02/19 History carvedilol 12.5 mg PO BID 02/02/19 02/02/19 History cholecalciferol (vitamin D3) 1,000 unit PO DAILY 02/02/19 02/02/19 History [Vitamin D3] citalopram 10 mg PO DAILY 02/02/19 02/02/19 History cyanocobalamin (vitamin B-12) 1,000 mcg PO DAILY 02/02/19 02/02/19 History furosemide 20 mg PO DAILY PRN 02/02/19 02/02/19 History isosorbide mononitrate 30 mg PO DAILY 02/02/19 02/02/19 History leflunomide 10 mg PO DAILY 02/02/19 02/02/19 History levothyroxine 150 mcg PO DAILY 02/02/19 02/02/19 History loratadine [Claritin] 10 mg PO DAILY PRN 02/02/19 02/02/19 History nitroglycerin [Nitrostat] 0.4 mg SUBLINGUAL UD 02/02/19 02/02/19 History pseudoephedrine-guaifenesin 1 tab PO BID 02/02/19 02/02/19 History [Mucinex D] sodium bicarbonate 650 mg PO BID 02/02/19 02/02/19 History Allergies Allergy/AdvReac Type Severity Reaction Status Date / Time tramadol [From Ultram] AdvReac Intermediate Nausea Verified 02/02/19 12:45 furosemide AdvReac Unknown rash Verified 02/02/19 12:45 Past Med/Surg History Medical History (Updated 02/02/19 @ 13:19 by Daniel Camp DO) Anemia of renal disease CAD (coronary artery disease) per records cardiac cath in [place] when visiting 04/12 to acute CHF exacerbation. Revealed chronically occluded RCA as well as obtuse marginal management medically CHF (congestive heart failure) CKD (chronic kidney disease), stage IV History of heart attack HTN (hypertension) MGUS (monoclonal gammopathy of unknown significance) PMR (polymyalgia rheumatica) Psoriatic arthritis Right-sided extracranial carotid artery stenosis Secondary hyperparathyroidism Surgical History (Updated 02/02/19 @ 12:06 by Melva Valladares PA-C) History of D&C History of lymph node biopsy hx of sentinel lymph node bx History of partial mastectomy of right breast History of tonsillectomy and adenoidectomy History of tubal ligation Family History (Updated 02/02/19 @ 12:10 by Melva Valladares PA-C) Mother Coronary heart disease Father Hypertension Stroke Social History (Updated 02/02/19 @ 12:09 by Melva Valladares PA-C) Preferred Language: Hebrew Communication Ability: Unable Beliefs That Will Affect Care: None Current Living Situation: Alone Feels Safe at Home: Yes Smoking Status: Never smoker Hx Alcohol Use: No (OCCASIONAL) Hx Substance Use: No Review of Systems Unable to obtain a full 10 point review of systems due to the patient's acute respiratory distress. Physical Exam Vital Signs Vital Signs - 24 hr 02/02/19 08:45 02/02/19 08:50 02/02/19 08:58 Pulse Rate 105 H Pulse Rate [Apical] 101 H Respiratory Rate 36 H 22 Respiratory Effort / Characteristics Spontaneous Blood Pressure 190/126 H Blood Pressure [Right Arm] 143/110 H Blood Pressure Mean 147 Blood Pressure Mean [Right Arm] 121 Pulse Oximetry 83 L 77 L Oxygen Delivery Method BiPAP Fraction of Inspired Oxygen 100 Sepsis Recent Fever Within 48 Hours No Sepsis New/Unexplained Change in Mental Status No Sepsis Action Taken by Nursing No Action Required 02/02/19 09:14 02/02/19 09:17 02/02/19 09:20 Pulse Rate 110 H Pulse Rate [Apical] 107 H Respiratory Rate 16 16 Respiratory Effort / Characteristics Blood Pressure Blood Pressure [Right Arm] 135/96 Blood Pressure Mean Blood Pressure Mean [Right Arm] 109 Pulse Oximetry 76 L 86 L 91 Oxygen Delivery Method Ambu-Bag Fraction of Inspired Oxygen 100 Sepsis Recent Fever Within 48 Hours Sepsis New/Unexplained Change in Mental Status Sepsis Action Taken by Nursing 02/02/19 09:38 02/02/19 09:55 Pulse Rate Pulse Rate [Apical] 101 H 92 H Respiratory Rate 16 16 Respiratory Effort / Characteristics Blood Pressure Blood Pressure [Right Arm] 164/102 H 137/77 Blood Pressure Mean Blood Pressure Mean [Right Arm] 122 97 Pulse Oximetry 98 99 Oxygen Delivery Method Mechanical Vent Mechanical Vent Fraction of Inspired Oxygen Sepsis Recent Fever Within 48 Hours Sepsis New/Unexplained Change in Mental Status Sepsis Action Taken by Nursing GENERAL: Patient respiratory distress. Cyanotic fingernails. EYES: Conjunctivae and EOM are normal. Pupils are equal, round, and reactive to light. Right eye exhibits no discharge. Left eye exhibits no discharge. No scleral icterus. NECK: Normal range of motion. Neck supple. No JVD present. No spinous process tenderness present. No carotid bruit present. No rigidity. No tracheal deviation and normal range of motion present. CV: Normal rate, regular rhythm, normal heart sounds and intact distal pulses. There is no peripheral edema. Palpable radial pulses bue. PULM/CHEST: Severe respiratory distress. Patient speaking 1 word sentences. Rhonchi and rales bilaterally. Chest Wall: She exhibits no tenderness. ABD: The abdomen is soft. Bowel sounds are normal. She has no distension. No mass is present. There is no tenderness. There is no rebound, no guarding, no Hickman's sign and no tenderness at McBurney's point. Rovsig negative MUSC/SKEL: Normal range of motion. There is no peripheral edema, tenderness or deformity. NEURO: Motor and sensation grossly intact. Procedures Intubation Time out performed: Yes sedative: Etomidate Mg Given: 20 paralytic: Rocuronium Mg Given: 90 Laryngoscope: fiber optic video scope (glideoscope) ET Tube Size: 7 ET Tube Uncuffed: Yes Tube Secured Depth (cm): 23 Tube Secured Location: teeth Tube Placement Confirmation: visualized tube passing through cords, equal breath sounds bilaterally, no breath sounds over epigastrium and confirmation by capnometry Patient Tolerated Procedure: well Intubation Complications: difficult intubation Additional Comments: Patient was a difficult intubation. First attempt was made via direct laryngoscopy using a Eyal 4. Tube was placed however there is negative color change and sounds or heard over the epigastrium. The tube was removed and direct laryngoscopy was again tried with the bougie assist device. The bougie assist device was not thought to be placed in the trachea but instead at the esophagus. This was confirmed via glideoscope. The bougie assistance device was removed and the cords were visualized using the glidedoscope, however the tube was unable to be passed records. The glideoscope was removed and the patient was bagged with an ambu bag. The ICU team as well as anesthesiologist. A second attempt was made with the glideoscope and the cords were visualized again and this time the ET tube was able to be passed through the cords as the ICU attending arrived in the resus bay. Course Course 0845: The patient was evaluated in room B1 and a complete history and physical were performed. 0905: Intubation was attempted 4 times unsuccessfully. She was then successfully intubated, see procedure note for full details. 0949: I discussed the patients case with [facility] The patient will be further evaluated. Dr. Rivero is the attending physician. 0950: I spoke to the patients friend. She states the patient was doing fine this morning. She had a recent [place] about 1 year ago. Her friend picked her up this morning for some skin shaving and at the [facility] dermatology office, and during the appointment, the patient developed respiratory distress and appeared diaphoretic, so EMS was called. Her Oxygen was 50% on room air and she was given 5 sprays of intranasal Nitro. The friend reports she also had a recent dental procedure for a chipped tooth and is unsure if the patient was using ora-gel. The patient was also recently scratched by a cat. 1020: I spoke with Dr. Rivero about the patients met-hemoglobin and she recommended I contact Pulmonology. I called Dr. Monte of the ICU, but he is in a family meeting. I spoke with the resident. Dr. Soliz, and he will have Dr. Monte call me back. 1032: Dr. Ellison messaged me back via the click and he spoke with Dr. Monte, and they will evaluate the patient to see if they would like to start methylene blue. 1040: Mel[facility]emayor [facility]-C, [facility]. Her pressure is greater than 200 systolic. We will hold off on admin istering any more Nitroglycerin as that has been reported to induce the possibility of Methemoglobinemia. Melva will discuss with the ICU team. Consultations Consultation #1: I discussed the patients case with Melva [facility]adares [facility] The patient will be further evaluated. Dr. Rivero is the attending physician. Time: 09:49 Administered Medications Fentanyl Citrate (Fentanyl Drip) 1,250 mcg in 250 mls @ 5 mls/hr IV .Q24H [facility]; Protocol Stop: 02/16/19 09:59 Last Admin: 02/02/19 10:25 Dose: 25 mcg/hr, 5 mls/hr Documented by: [id number] Cosigned by: [id number] Propofol (Diprivan) 1,000 mg in 100 mls @ 2.61 mls/hr IV .Q24H [facility]; Protocol Stop: 02/05/19 09:59 Last Admin: 02/02/19 12:19 Dose: 5 mcg/kg/min, 2.6 mls/hr Documented by: [id number] Cosigned by: [id number] Heparin Sodium/Dextrose (Heparin Sodium/Dextrose) 25,000 units in 500 mls @ 26 mls/hr IV .[id number] [facility]; Protocol Stop: 03/04/19 11:44 Last Admin: 02/02/19 13:03 Dose: 1,300 units/hr, 26 mls/hr Documented by: [id number] Cosigned by: [id number] Discontinued Medications Aspirin Buffered (Ascriptin) 325 mg PO 1200 ONE Stop: 02/02/19 12:01 Last Admin: 02/02/19 12:56 Dose: Not Given Documented by: [id number] Heparin Sodium/Dextrose () 1 ea IV NOW STA; Protocol Stop: 02/02/19 11:35 Last Admin: 02/02/19 13:28 Dose: 1 ea Documented by: [id number] Lorazepam (Ativan) 1 mg in 2 mls @ 2 mls/min IV NOW STA Stop: 02/02/19 08:56 Last Admin: 02/02/19 08:56 Dose: 2 mls/min Documented by: [id number] Nitroglycerin/Dextrose (Nitroglycerin/D5w 100 Mcg/Ml) 250 mls @ 6 mls/hr IV .Q24H [facility]; Protocol Stop: 03/04/19 08:59 Last Admin: 02/02/19 09:50 Dose: Not Given Documented by: [id number] Cefepime HCl (Maxipime) 2,000 mg in 20 mls @ 5 mls/min IV NOW STA; Protocol Stop: 02/02/19 10:22 Last Admin: 02/02/19 13:33 Dose: 5 mls/min Documented by: [id number] Vancomycin HCl 1,750 mg/ (Sodium Chloride) 535 mls @ 200 mls/hr IV NOW ONE Stop: 02/02/19 12:59 Last Admin: 02/02/19 12:19 Dose: 200 mls/hr Documented by: [id number] Cefepime HCl 2,000 mg/ Syringe 20 mls @ 5 mls/min IV ONE ONE Stop: 02/02/19 13:03 Last Admin: 02/02/19 13:28 Dose: 5 mls/min Documented by: [id number] Heparin Sodium (Porcine) 6,000 (units/ Syringe) 6 mls @ 10 mls/min IV NOW ONE Stop: 02/02/19 13:01 Last Admin: 02/02/19 13:04 Dose: 10 mls/min Documented by: [id number] Cosigned by: [id number] Methylprednisolone (Solumedrol) 125 mg IV NOW STA Stop: 02/02/19 08:56 Last Admin: 02/02/19 09:47 Dose: 125 mg Documented by: [id number] Miscellaneous () Confirm Administered Dose 1 ea .ROUTE .STK-MED ONE Stop: 02/02/19 08:42 Last Admin: 02/02/19 08:48 Dose: 1 ea Documented by: [id number] Nitroglycerin/Dextrose (Nitroglycerin/D5w 100 Mcg/Ml) Confirm Administered Dose 25 mg .ROUTE .STK-MED ONE Stop: 02/02/19 09:00 Last Admin: 02/02/19 09:50 Dose: Not Given Documented by: [id number] Propofol (Diprivan) Confirm Administered Dose 1,000 mg IV .STK-MED ONE Stop: 02/02/19 09:26 Last Admin: 02/02/19 09:35 Dose: 1,000 mg Documented by: [id number] Cosigned by: [id number] Critical Care Time Critical Care Time: Yes Total Critical Care Time: 90 I have personally spent 90 minutes of critical care time in the direct manageme nt of this patient. This includes bedside care, interpretation of diagnostic studies, and testing, discussion with consultants, patient, and family members, and other required patient management activities. This 90 minutes is in excess of all separately billable procedures. Medical Decision Making Medical Records Attestation: I reviewed the patient's medical records. Home Medications Current Medication List: was personally reviewed by me Laboratory Data Attestation: I reviewed the patient's lab results. Result diagrams: 02/02/19 09:10 02/02/19 09:10 Lab Results 02/02/19 02/02/19 02/02/19 Range/Units 08:59 09:00 09:00 WBC (4.8-10.8) K/uL RBC (4.2-5.4) M/uL Hgb (12.0-16.0) g/dL POC Hgb 13.3 (12.0-16.0) g/dl Hct (37-47) % POC Hct 39 (37-47) % MCV (80-100) fL MCH (25-34) pg MCHC (32-36) g/dL RDW Std Deviation (36.4-46.3) fL RDW Coeff of Rosa (11.5-14.5) % Plt Count (130-400) K/uL MPV (7.4-10.4) fL Immature Gran % (Auto) % Neut % (Auto) % Lymph % (Auto) % [place] % (Auto) % Eos % (Auto) % Baso % (Auto) % Immature Gran # (Auto) (0.00-0.02) K/uL Neut # (Auto) (1.4-6.5) K/uL Lymph # (Auto) (1.2-3.4) K/uL [place] # (Auto) (0.11-0.59) K/uL Eos # (Auto) (0-0.5) K/uL Baso # (Auto) (0-0.2) K/uL Blood Smear Review PT (9.0-12.0) Seconds INR (0.9-1.1) APTT (21.0-31.0) Seconds PTT Ratio D-Dimer (0-500) ug/L FEU POC pH (7.35-7.45) POC pCO2 (35-46) mmHg POC pO2 (80-95) mmHg POC HCO3 (19-24) kashif/L POC Base Excess (-9-1.8) kashif/L Methemoglobin POC Sodium 139 (135-144) mEq/L Sodium (136-145) mmol/L POC Potassium 4.1 (3.3-5.0) mEq/L Potassium (3.5-5.1) mmol/L POC Chloride 107 (101-112) mEq/L Chloride (98-107) mmol/L Carbon Dioxide (21-32) mmol/L POC Total CO2 20 L (24-31) mEq/l Anion Gap (3-11) POC Anion Gap 16.0 (16-25) mmol/L POC BUN 24 H (7-18) mg/dl BUN (7-18) mg/dl Creatinine (0.6-1.2) mg/dl POC Creatinine 2.6 H (0.6-1.3) mg/dl Est Cr Clr Drug Dosing ml/min Est GFR ( Amer) Est GFR (Non-Af Amer) BUN/Creatinine Ratio (10-20) Glucose (70-99) mg/dl POC Glucose (other) 285 H (70-99) mg/dl Lactate 5.2 H* (0.4-2.0) mmol/L Calcium (8.5-10.1) mg/dl POC Ioniz Calcium Neeraj 1.18 (1.12-1.32) mmol/l Magnesium (1.8-2.4) mg/dl Total Bilirubin (0.2-1) mg/dl Direct Bilirubin (0-0.2) mg/dl AST (15-37) U/L ALT (12-78) U/L Alkaline Phosphatase (45-117) U/L POC Troponin I < 0.03 (0-0.045) ng/ml Troponin I (0-0.045) ng/ml NT-Pro-B Natriuret Pep (0-1800) pg/ml Total Protein (6.4-8.2) gm/dl Albumin (3.4-5.0) gm/dl Lipase (73-393) U/L Influenza Type A (PCR) (Neg) Influenza Type B (PCR) (Neg) 02/02/19 02/02/19 02/02/19 Range/Units 09:01 09:10 09:10 WBC 16.42 H (4.8-10.8) K/uL RBC 4.19 L (4.2-5.4) M/uL Hgb 12.6 (12.0-16.0) g/dL POC Hgb 12.2 (12.0-16.0) g/dl Hct 39.5 (37-47) % POC Hct 36 L (37-47) % MCV 94.3 (80-100) fL MCH 30.1 (25-34) pg MCHC 31.9 L (32-36) g/dL RDW Std Deviation 48.9 H (36.4-46.3) fL RDW Coeff of Rosa 14.3 (11.5-14.5) % Plt Count 429 H (130-400) K/uL MPV 11.1 H (7.4-10.4) fL Immature Gran % (Auto) 0.4 % Neut % (Auto) 57.5 % Lymph % (Auto) 31.7 % [place] % (Auto) 6.9 % Eos % (Auto) 3.3 % Baso % (Auto) 0.2 % Immature Gran # (Auto) 0.06 H (0.00-0.02) K/uL Neut # (Auto) 9.44 H (1.4-6.5) K/uL Lymph # (Auto) 5.20 H (1.2-3.4) K/uL [place] # (Auto) 1.13 H (0.11-0.59) K/uL Eos # (Auto) 0.55 H (0-0.5) K/uL Baso # (Auto) 0.04 (0-0.2) K/uL Blood Smear Review PT 11.1 (9.0-12.0) Seconds INR 1.1 (0.9-1.1) APTT 26.0 (21.0-31.0) Seconds PTT Ratio 1.0 D-Dimer (0-500) ug/L FEU POC pH 7.18 L* (7.35-7.45) POC pCO2 44 (35-46) mmHg POC pO2 61 L (80-95) mmHg POC HCO3 16 L (19-24) kashif/L POC Base Excess -12.0 L (-9-1.8) kashif/L Methemoglobin POC Sodium 138 (135-144) mEq/L Sodium (136-145) mmol/L POC Potassium 3.7 (3.3-5.0) mEq/L Potassium (3.5-5.1) mmol/L POC Chloride (101-112) mEq/L Chloride (98-107) mmol/L Carbon Dioxide (21-32) mmol/L POC Total CO2 18 L (24-31) mEq/l Anion Gap (3-11) POC Anion Gap (16-25) mmol/L POC BUN (7-18) mg/dl BUN (7-18) mg/dl Creatinine (0.6-1.2) mg/dl POC Creatinine (0.6-1.3) mg/dl Est Cr Clr Drug Dosing ml/min Est GFR ( Amer) Est GFR (Non-Af Amer) BUN/Creatinine Ratio (10-20) Glucose (70-99) mg/dl POC Glucose (other) (70-99) mg/dl Lactate (0.4-2.0) mmol/L Calcium (8.5-10.1) mg/dl POC Ioniz Calcium Neeraj (1.12-1.32) mmol/l Magnesium (1.8-2.4) mg/dl Total Bilirubin (0.2-1) mg/dl Direct Bilirubin (0-0.2) mg/dl AST (15-37) U/L ALT (12-78) U/L Alkaline Phosphatase (45-117) U/L POC Troponin I (0-0.045) ng/ml Troponin I (0-0.045) ng/ml NT-Pro-B Natriuret Pep (0-1800) pg/ml Total Protein (6.4-8.2) gm/dl Albumin (3.4-5.0) gm/dl Lipase (73-393) U/L Influenza Type A (PCR) (Neg) Influenza Type B (PCR) (Neg) 02/02/19 02/02/19 02/02/19 Range/Units 09:10 09:10 09:40 WBC (4.8-10.8) K/uL RBC (4.2-5.4) M/uL Hgb (12.0-16.0) g/dL POC Hgb (12.0-16.0) g/dl Hct (37-47) % POC Hct (37-47) % MCV (80-100) fL MCH (25-34) pg MCHC (32-36) g/dL RDW Std Deviation (36.4-46.3) fL RDW Coeff of Rosa (11.5-14.5) % Plt Count (130-400) K/uL MPV (7.4-10.4) fL Immature Gran % (Auto) % Neut % (Auto) % Lymph % (Auto) % [place] % (Auto) % Eos % (Auto) % Baso % (Auto) % Immature Gran # (Auto) (0.00-0.02) K/uL Neut # (Auto) (1.4-6.5) K/uL Lymph # (Auto) (1.2-3.4) K/uL [place] # (Auto) (0.11-0.59) K/uL Eos # (Auto) (0-0.5) K/uL Baso # (Auto) (0-0.2) K/uL Blood Smear Review PT (9.0-12.0) Seconds INR (0.9-1.1) APTT (21.0-31.0) Seconds PTT Ratio D-Dimer 1800 H* (0-500) ug/L FEU POC pH (7.35-7.45) POC pCO2 (35-46) mmHg POC pO2 (80-95) mmHg POC HCO3 (19-24) kashif/L POC Base Excess (-9-1.8) kashif/L Methemoglobin Cancelled POC Sodium (135-144) mEq/L Sodium 135 L (136-145) mmol/L POC Potassium (3.3-5.0) mEq/L Potassium 4.0 (3.5-5.1) mmol/L POC Chloride (101-112) mEq/L Chloride 107 (98-107) mmol/L Carbon Dioxide 17 L (21-32) mmol/L POC Total CO2 (24-31) mEq/l Anion Gap 11.0 (3-11) POC Anion Gap (16-25) mmol/L POC BUN (7-18) mg/dl BUN 24 H (7-18) mg/dl Creatinine 2.43 H (0.6-1.2) mg/dl POC Creatinine (0.6-1.3) mg/dl Est Cr Clr Drug Dosing 22.0 ml/min Est GFR ( Amer) 21.5 Est GFR (Non-Af Amer) 18.6 BUN/Creatinine Ratio 9.7 L (10-20) Glucose 285 H (70-99) mg/dl POC Glucose (other) (70-99) mg/dl Lactate (0.4-2.0) mmol/L Calcium 9.1 (8.5-10.1) mg/dl POC Ioniz Calcium Neeraj (1.12-1.32) mmol/l Magnesium 2.2 (1.8-2.4) mg/dl Total Bilirubin 0.5 (0.2-1) mg/dl Direct Bilirubin 0.1 (0-0.2) mg/dl AST 19 (15-37) U/L ALT 12 (12-78) U/L Alkaline Phosphatase 180 H (45-117) U/L POC Troponin I (0-0.045) ng/ml Troponin I < 0.015 (0-0.045) ng/ml NT-Pro-B Natriuret Pep 1456 (0-1800) pg/ml Total Protein 8.7 H (6.4-8.2) gm/dl Albumin 3.3 L (3.4-5.0) gm/dl Lipase 198 (73-393) U/L Influenza Type A (PCR) (Neg) Influenza Type B (PCR) (Neg) 02/02/19 02/02/19 Range/Units 09:40 09:56 WBC (4.8-10.8) K/uL RBC (4.2-5.4) M/uL Hgb (12.0-16.0) g/dL POC Hgb (12.0-16.0) g/dl Hct (37-47) % POC Hct (37-47) % MCV (80-100) fL MCH (25-34) pg MCHC (32-36) g/dL RDW Std Deviation (36.4-46.3) fL RDW Coeff of Rosa (11.5-14.5) % Plt Count (130-400) K/uL MPV (7.4-10.4) fL Immature Gran % (Auto) % Neut % (Auto) % Lymph % (Auto) % [place] % (Auto) % Eos % (Auto) % Baso % (Auto) % Immature Gran # (Auto) (0.00-0.02) K/uL Neut # (Auto) (1.4-6.5) K/uL Lymph # (Auto) (1.2-3.4) K/uL [place] # (Auto) (0.11-0.59) K/uL Eos # (Auto) (0-0.5) K/uL Baso # (Auto) (0-0.2) K/uL Blood Smear Review PT (9.0-12.0) Seconds INR (0.9-1.1) APTT (21.0-31.0) Seconds PTT Ratio D-Dimer (0-500) ug/L FEU POC pH (7.35-7.45) POC pCO2 (35-46) mmHg POC pO2 (80-95) mmHg POC HCO3 (19-24) kashif/L POC Base Excess (-9-1.8) kashif/L Methemoglobin 2.7 H POC Sodium (135-144) mEq/L Sodium (136-145) mmol/L POC Potassium (3.3-5.0) mEq/L Potassium (3.5-5.1) mmol/L POC Chloride (101-112) mEq/L Chloride (98-107) mmol/L Carbon Dioxide (21-32) mmol/L POC Total CO2 (24-31) mEq/l Anion Gap (3-11) POC Anion Gap (16-25) mmol/L POC BUN (7-18) mg/dl BUN (7-18) mg/dl Creatinine (0.6-1.2) mg/dl POC Creatinine (0.6-1.3) mg/dl Est Cr Clr Drug Dosing ml/min Est GFR ( Amer) Est GFR (Non-Af Amer) BUN/Creatinine Ratio (10-20) Glucose (70-99) mg/dl POC Glucose (other) (70-99) mg/dl Lactate (0.4-2.0) mmol/L Calcium (8.5-10.1) mg/dl POC Ioniz Calcium Neeraj (1.12-1.32) mmol/l Magnesium (1.8-2.4) mg/dl Total Bilirubin (0.2-1) mg/dl Direct Bilirubin (0-0.2) mg/dl AST (15-37) U/L ALT (12-78) U/L Alkaline Phosphatase (45-117) U/L POC Troponin I (0-0.045) ng/ml Troponin I (0-0.045) ng/ml NT-Pro-B Natriuret Pep (0-1800) pg/ml Total Protein (6.4-8.2) gm/dl Albumin (3.4-5.0) gm/dl Lipase (73-393) U/L Influenza Type A (PCR) Neg for Influ A (Neg) Influenza Type B (PCR) Neg for Influ B (Neg) Imaging Data Radiologist's Impression: Radiology results as stated below per my review and the radiologist's interpretation: XR chest 1V portable CLINICAL HISTORY: Respiratory distress COMPARISON STUDY: No previous studies for comparison. FINDINGS: The heart is at the upper limits of normal in size. There are diffuse bilateral pulmonary airspace opacities. Diagnostic considerations include pulmonary edema, multifocal pneumonia, or diffuse alveolar hemorrhage. IMPRESSION: Diffuse bilateral pulmonary airspace opacities. Electronically signed by: Vlad Campa M.D. 02/02/2019 9:30 AM XR chest 1V portable CLINICAL HISTORY: 79 years-old Female presenting with sunitha. TECHNIQUE: Portable upright AP view of the chest was obtained. COMPARISON: 02/02/2019 at 8:52 a.m.. FINDINGS: Endotracheal tube terminates in the mid thoracic trachea. Cardiomediastinal silhouette normal. Diffuse opacities throughout both lungs with bronchial wall thickening similar to prior. No large pleural effusion or pneumothorax. Degenerative changes of the thoracic spine. Upper abdomen normal. IMPRESSION: 1. Appropriately positioned endotracheal tube. 2. Similar appearance of diffuse pulmonary infiltrates likely moderate pulmonary edema, multifocal infection, or diffuse alveolar damage. Electronically signed by: Diego Collins M.D. 02/02/2019 9:40 AM ECG Data Attestation: I personally reviewed and interpreted this ECG as follows: Indication: + SOB/dyspnea Rate (beats per minute): 94 Rhythm: + sinus rhythm ECG Intervals/blocks: + Right Bundle branch block ECG ST segments: + ST depression (in lead 2 and V6) ECG Findings: + Other ([place] interval is 184, QRS is 132, QTC is 485) Blood Pressure Blood Pressure Findings: Elevated blood pressure Blood Pressure Disposition: further management by hospitalist ALEX Merrill Patient came in in severe respiratory distress. On arrival, her oxygen satu ration was 63% on the CPAP by EMS. She arrived in the emergency department hypertensive also. Patient was switched to BiPAP and her oxygen saturations never improved past 82%. Chest x-ray showed mild cardiomegaly with cephalization compatible with the appearance of CHF. It was thought that the p atient was suffering from flash pulmonary edema. Given that the patient's oxygen saturation never improved past 82% after trial of BiPAP, the decision was made to intubate the patient. Intubation was difficult. Multiple attempts were taken. Patient was eventually intubated via glide scope. See procedure note. After the patient was intubated, it took a significant amount of time for the oxygen saturation to go above 90%. A nitroglycerin drip was going to be started for flash pulmonary edema, however after the patient was placed on the ventilator her blood pressure improved. It is thought that her blood pressure improved due to the positive pressure ventilation, therefore a nitroglycerin drip was held. The ET tube was confirmed to be in place on chest x-ray. An OG tube was placed. I did speak with the patient's friend who states that patient had an TN about 1 year ago. The friend stated that she picked her friend up to take her to the vegetable scullion this morning that the vegetable scullion she is developed an acute onset of shortness of breath, diaphoresis, and respiratory distress. The patient's friend also reports that the patient had some recent dental work. Given the patient's low oxygen saturation that did not improve with CPAP or BiPAP and this history of recent procedure, methemoglobinemia was considered on differential diagnosis and a methemoglobin level was obtained. The friend states she is not sure if the patient has been using any Orajel or oral benzocaine. The patient was placed on a fentanyl and propofol drip for sedation. Patient's labs showed a white count of 16.42. ABG showed a pH of 7.18. PCO2 of 61. Bicarb 16. Total CO2 18. Patient has a creatinine of 2.43. The possibility of a PE was also considered possible, however given the patient's elevated creatinine level and not knowing her baseline, no CTA was ordered at this time. Patient's troponin was negative and her proBNP was 1456. Patient's lactic acid level was elevated above 5. Is thought that the lactic acid level was elevated primarily due to the hypoxia, however given her elevated white blood cell count, broad-spectrum antibiotics were started for possible pneumonia. Cefepime and vancomycin were ordered. Blood cultures were sent. The patient's met hemoglobin level returned at 2.7. I did discuss with the hospitalist team as well as the ICU team if they wanted me to start the patient on methylene blue given her elevated methemoglobin level respiratory distress, recent dental procedure, and her very low oxygen saturations. ICU team stated to hold off of methylene blue and they will evaluate the patient to see if they wanted to start it. At the time that the patient was being transferred from the emergency department to the ICU the patient's blood pressure again became elevated. No subsequent nitroglycerin was given to the patient as there is fear that if the patient was truly suffering from methemoglobin anemia nitroglycerin would worsen this. The patient's propofol and fentanyl drips were increased as it was thought that the patient's blood pressure elevation could be due to pain from being intubated. Impression & Plan Respiratory failure, Hypoxia, Lactic acidemia Discharge Plan Visit Data *Final* Discharge Date/Time: 02/02/19 11:12 Chief Complaint: Respiratory Distress ED Provider: Lamberto Camilo Discharge Problem: Respiratory failure, Hypoxia, Lactic acidemia Patient Disposition: Admitted As Inpatient Discharge Instructions Interventions: ED Discharge Assessment Last Done: 02/02/19 11:12 The scribe's documentation has been prepared under my direction and personally reviewed by me in its entirety. I confirm that the note above accurately re flects all work, treatment, procedures, and medical decision making performed by me.
--- NOTE | 2019-02-02 13:45 | XRay Report ---
XR KUB/Abdomen 1 view CLINICAL HISTORY: 79 years-old Female presenting with NGT placement. TECHNIQUE: Single supine view of the abdomen was obtained. COMPARISON: None. FINDINGS: Nasogastric tube terminates in the gastric body, sidehole also within the gastric lumen. Nonobstructi ve bowel gas pattern. No gross pneumoperitoneum. Allowing for bowel gas and stool, no calcifications to suggest nephrolithiasis. Degenerative changes of the spine. IMPRESSION: 1. Appropriately positioned nasogastric tube. Electronically signed by: Diego Collins M.D. 02/02/2019 1:44 PM
[2019-02-02] MEDS: FUROSEMIDE 20 MG in SYRINGE 0 ML IV SCH ×2 (15:32→20:35)
[2019-02-02] MEDS ORDERED: fentaNYL citrate 100 MCG/2 ML VIAL IV ONE (16:28)
[2019-02-02] MEDS ORDERED: LORazepam 2 MG/ML VIAL (IM USE) IM ONE (16:28)
[2019-02-02] MEDS ORDERED: ROCURONIUM BROMIDE 10 MG/ML 5 ML VIAL IV ONE (16:28)
[2019-02-02] MEDS ORDERED: ETOMIDATE 2 MG/ML 20 ML VIAL IV ONE (16:28)
--- NOTE | 2019-02-02 17:19 | Ultrasound Report ---
ULTRASOUND BILATERAL LOWER EXTREMITY VENOUS CLINICAL HISTORY: Elevated d-dimer. COMPARISON STUDY: No priors. TECHNIQUE: Real-time, grayscale, and color Doppler sonography of the deep veins of the right and left lower extremity was performed from the inguinal crease to the calf. Compression and augmentation wer e utilized. FINDINGS: There is no sonographic evidence of deep venous thrombosis identified in the right or left lower extremity. The common femoral, superficial femoral, and popliteal veins are patent and normally compressible bilaterally. A small portion of the right superficial femoral vein was not visualized d ue to overlying dressing. The greater saphenous vein and the profunda femoris vein at the junction wi th the common femoral vein are clear in both legs. The visualized calf veins are patent bilaterally. IMPRESSION: There is no sonographic evidence of deep venous thrombosis identified in the right or lef t lower extremity. Electronically signed by: Ron Lopes M.D. 02/02/2019 5:18 PM
--- NOTE | 2019-02-02 17:44 | Billing Data ---
Coding Level of Care Code Critical Care 1st 30-74 mins
[2019-02-02 20:15] LABS: Partial Thromboplastin Ratio > 5.1
[2019-02-02 20:26] LABS: Partial Thromboplastin Time > 139.0 Seconds (21.0-31.0)
[2019-02-02] MEDS: carvediloL 12.5 MG TAB PO SCH (20:35)
[2019-02-02 21:40] LABS: Partial Thromboplastin Ratio 1.8
[2019-02-02 21:48] LABS: Partial Thromboplastin Time 49.6 Seconds (21.0-31.0)
[2019-02-03] MEDS: PROPOFOL 1,000 MG/100 ML VIAL IV SCH (03:28)
[2019-02-03 04:16] LABS: Hematocrit (blood only) 32.1 % (37-47); Hemoglobin 10.4 g/dL (12.0-16.0); Immature Granulocytes # (auto) 0.02 K/uL (0.00-0.02); Immature Granulocytes % (auto) 0.2 %; Lymphocytes # (auto) 1.14 K/uL (1.2-3.4); Lymphocytes % (auto) 8.8 %; Mean Corpuscular Hgb Conc 32.4 g/dL (32-36); Mean Corpuscular Volume 92.5 fL (80-100); Mean Platelet Volume 10.6 fL (7.4-10.4); Monocytes # (auto) 0.67 K/uL (0.11-0.59); Monocytes % (auto) 5.1 %; Neutrophils # (auto) 11.18 K/uL (1.4-6.5); Neutrophils % (auto) 85.9 %; Platelet Count 287 K/uL (130-400); RDW Coefficient of Variation 14.1 % (11.5-14.5); RDW Standard Deviation 47.2 fL (36.4-46.3); Red Blood Count 3.47 M/uL (4.2-5.4); White Blood Count 13.01 K/uL (4.8-10.8)
[2019-02-03 04:34] LABS: BUN Creatinine Ratio 11.7 (10-20); Calcium 8.7 mg/dl (8.5-10.1); Creatinine Clr Calc Pharmacy 19.8 ml/min; Est GFR (African American) 18.9; Est GFR (Non-African American) 16.3; Potassium 4.4 mmol/L (3.5-5.1)
[2019-02-03 04:36] LABS: Partial Thromboplastin Ratio 1.5
[2019-02-03 04:37] LABS: Albumin Globulin Ratio 0.6 (0.9-2); Bilirubin,Total 0.4 mg/dl (0.2-1); Globulin 4.9 gm/dl (2.5-4.0); Phosphorus 5.7 mg/dl (2.5-4.9); Total Protein 7.9 gm/dl (6.4-8.2)
[2019-02-03] MEDS ORDERED: HEPARIN IV BOLUS 3,000 UNITS in SYRINGE 0 ML IV STA (04:52)
--- NOTE | 2019-02-03 07:05 | Critical Care Progress Note ---
Date of Service February 03, 2019 Assessment & Plan (1) Acute respiratory failure with hypoxia: Reason Critically Ill: 79-year-old female here with a PMHx significant for CKD4 (bl Cr ~2.4), dCHF, VT 2018 managed medically, MGUS dx 2002, and psoriatic arthritis who presented with shortness of breath and hypoxia and who was admitted for acute hypoxic respiratory failure requiring mechanical ventilation. Neuro - [facility] ICU: POSITIVE Extubated @ 0730. Propofol and Fentanyl d/joy Citalopram held for QTp, if repeat ECG normalizes then restart Cardiac - Acute ST Changes, acute pulmonary edema suspicious for stunned myocardium - EKG: ?St changes ~1mm in II, avR, V4, V5 and new RBBB compared to 2018 on admit - Repeat EKG pending - Initial troponin negative. Troponin leak to .190, .198. Mild trop leak, will not repeat unless clinical picture changes. - Pt had a similar presentation in 2018 with Casimiro. Cardiac Cath showed RCA and Marginal occlusion medically managed (no stents/bipass). - Cardiology consulted. TTE shows no new wall motion abnormality, ? decreased EF to 35-40%.. Consider stress/cath as outpt once stable. - Heparin gtt d/joy. - Continue atorvastatin 80mg daily HTN - Continue [employer] amlodipine 10mg daily - Continue carvedilol 12.5mg PO BID, hold for sBP<100 or HR<60 - Goal Systolic BP <140, Diastolic <110 Respiratory - Acute Hypoxic Respiratory Failure 2/2 suspect AoC-dCHF, ddx includes ACS - Cardiac evaluation as above - Extubated following RSBI = 21, Tvol 1200cc, NIF -47. - Lasix held 2/2 Cr bump to 2.7 from 2.4 - PNA unlikely given acute presentation. Received empiric Vanc/Cefepime in ED. Procal negative, bronch sample sent for culture. - No Abx at this time, if fever curve uptrends or clincal concern increases then restart Cefepime. - MRSA nasal PCR negative. GI - Heart Healthy Diet RENAL/LYTES - CKD4, baseline Cr ~2.4 - Cr elevated to 2.7 from baseline 2.4 - No significant sodium or potassium derangement - Replace lytes as needed. - CMP daily - Fu intact Strict I&Os ENDO - No history of T2DM or prior antiglycemics ICU Hyperglycemia protocol Hypothyroidism - Continue levothyroxine 150mcg PO daily HEME - Stable H&H. Will monitor for any drops in the setting of Heparin gtt ID - Minimal concern for PNA, procal negative as noted in Respiratory. Blood cultures pending Sputum cultures pending Monitor fever curve. INTEGUMENTARY - Do not use R arm for IV access 2/2 hx of R lumpectomy No acute concerns LINES/IV ACCESS - PIVs intact. DVT PROPHYLAXIS - Heparin 5000 SQ Q12H Dispo: Progressing towards downgrade Thank you for allowing us to be part of this patient's care. Please refer to Dr. Monte's documentation for any further recommendations. Supervising Physician Co-Signing Physician Notes Patient seen and examined. EMR reviewed. Discussed with patient, ICU nurse, and FP resident as well as on multidisciplinary rounds Overnight events: Patient had marked improvement in her respiratory status. Chest x-ray cleared. Diuresed and blood pressure under good control. Impression: 79-year-old female with acute hypoxemic respiratory failure secondary to pulmonary edema, likely diastolic dysfunction. Recommendations: 1. Flash pulmonary edema: Patient had a reassuring SBT this morning and was extubated. She is doing well and is now on nasal cannula. 2. Probable diastolic heart failure. Blood pressure control and diuretics. C ontinued cardiology follow-up. 3. Hypertensive emergency: Restart her home antihypertensive regiment 4. Elevated methemoglobin: Of doubtful significance. She is on nitrates at home. No additional work-up needed currently. Patient said her Fu catheter removed. She is tolerating a diet. She is ambulatory. She is appropriate for transfer to the floor. Will sign off when she leaves the ICU. Feel free to contact us with questions or concerns. Subjective Limited by ETT. Alert, reponds to 1 and 2 step commands. Review of Systems Review of Systems: Unobtainable due to endotracheal tube Physical Exam Physical Exam: General: ETT in place, squeezes fingers and opens eyes on command. HEENT: Atraumatic, normocephalic. Upper lip swelling. Sclera non-icteric. No facial asymmetry. no nasolabial fold flatting/increased tone. PERLAA. EoM intact without nystagmus. Tracks with eyes. Pulm: Breath sounds improved, bibasilar crackles present. Symmetrical chest rise. On mechanical vent. Cardiac: RRR, -mrg. Radial pulses intact and symmetrical. Abdominal: Nontender, nondistended, soft. BS present. Extremities: Cool, dry. PT pulse intact bilaterally. Results & Data Vital Signs (Past 12 Hours) Vital Signs Temp Pulse Resp BP Pulse Ox 02/03/19 06:34 81 152/91 H 95 02/03/19 06:00 74 180/104 H 98 02/03/19 05:25 98 H 15 96 02/03/19 05:01 66 95 02/03/19 05:00 67 132/69 95 02/03/19 04:12 69 19 96 02/03/19 04:01 69 99 02/03/19 04:00 36.5 C 67 153/78 H 99 02/03/19 03:01 68 98 02/03/19 03:00 75 128/83 96 02/03/19 02:01 60 95 02/03/19 02:00 62 129/67 95 02/03/19 01:45 58 L 16 95 02/03/19 01:01 68 97 02/03/19 01:00 62 118/79 97 02/03/19 00:01 58 L 97 02/03/19 00:00 36.3 C L 60 127/73 97 02/02/19 23:30 58 L 16 97 02/02/19 23:01 56 L 98 02/02/19 23:00 56 L 124/50 L 98 02/02/19 22:01 62 97 02/02/19 22:00 60 110/64 97 02/02/19 21:25 66 16 98 02/02/19 21:01 69 99 02/02/19 21:00 75 154/82 H 99 02/02/19 20:01 80 98 02/02/19 20:00 36.7 C 77 167/92 H 100 02/02/19 19:12 74 100/67 97 02/02/19 19:07 78 16 97 Resident Activity Tracking Resident Involvement: Resident Care Provided Care Provided: Adult Hospital Medicine
[2019-02-03] MEDS ORDERED: HydrALAZINE HCL 20 MG/ML VIAL IV STA (07:18)
--- NOTE | 2019-02-03 07:20 | XRay Report ---
XR chest 1V portable CLINICAL HISTORY: Pulmonary edema COMPARISON STUDY: 02/02/2019 FINDINGS: There is a nasogastric tube which passes into the stomach. There is an endotracheal tube po sitioned 3.9 cm above the annamaria. There is been marked interval improvement in the previously identif ied pulmonary edema pattern.[ IMPRESSION: 1. Marked interval improvement in the previously described pulmonary edema 2. Interval insertion of a nasogastric tube which passes into the stomach Electronically signed by: Vlad Campa M.D. 02/03/2019 7:19 AM
[2019-02-03] MEDS ORDERED: HydrALAZINE HCL 20 MG/ML VIAL ONE (07:21)
[2019-02-03] MEDS ORDERED: INFLUENZA ADMINISTRATION CHARGE ONE (08:45)
[2019-02-03] MEDS ORDERED: INFLUENZA VACCINE HIGH DOSE 65+ 0.5 ML SYR IM ONE (08:45)
[2019-02-03 09:11] LABS: iSTAT Allen Test Pass; iSTAT Arterial Blood Gas HCO3 18 meg/L (19-24); iSTAT Arterial Blood Gas pCO2 30 mmHg (35-46); iSTAT Arterial Blood Gas pH 7.37 (7.35-7.45); iSTAT Arterial Blood Gas pO2 78 mmHg (80-95); iSTAT Carbon Dioxide 18 mEq/l (24-31); iSTAT FiO2 30 %; iSTAT Site L Radial
[2019-02-03] MEDS: HEPARIN SODIUM/DEXTROSE 25,000 UNITS/500 ML BAG IV SCH (09:15)
[2019-02-03] MEDS: carvediloL 12.5 MG TAB PO SCH ×2 (09:16→19:40)
[2019-02-03] MEDS: AMLODIPINE BESYLATE 5 MG TAB PO SCH (09:16)
[2019-02-03] MEDS ORDERED: ACETAMINOPHEN 500 MG TAB PO PRN (09:57)
[2019-02-03 11:12] LABS: Partial Thromboplastin Ratio 1.5
--- NOTE | 2019-02-03 13:02 | Hospitalist Progress Note ---
Date of Service February 03, 2019 Assessment & Plan (1) Acute respiratory failure with hypoxia: This is a 79-year-old female who has significant past medical history of COPD, chronic diastolic CHF, hypertension, CKD stage IV baseline creatinine 2.02.4, anemia of renal disease, psoriatic arthritis, PMR, secondary hyperparathyroidism, history of MGUS who presents to [facility] ED secondary to respiratory distress. In ED patient presented in respiratory distress requiring eventual mechanical intubation Initial blood gas revealed pH 7.18, bicarb 16, PCO2 44, elevated methylhemoglobin 2.7 Influenza negative She was started with the intravenous cefepime and vancomycin on admission with a suspicion of pneumonia Repeat x-ray did not show any evidence of pneumonia and antibiotics were stopped Appreciate network announcer input and recommendation She was extubated this morning and has been feeling a lot better She remains very weak and lethargic Present on Admission?: Yes (2) Lactic acidemia: Secondary to respiratory failure (3) CHF (congestive heart failure): LVEF 68%, grade 2 diastolic dysfunction, mild concentric LVH, left atrium mildly enlarged, mild aortic valve sclerosis and mild AV regurg present echo 09/2017 Repeat echocardiogram showed: Left ventricle is grossly normal in size, there is moderate concentric LV hypertrophy, LV systolic function is moderately reduced with EF of 35 to 40%, right ventricular systolic function is normal, left atrial size is normal, right atrial size and normal, and grade 1 diastolic dysfunction 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 No ACS during this admission Appreciate cardiology input and recommendation Clinically better this morning (4) CAD (coronary artery disease): according to [facility] records pt presented to [place] [facility] 08/26 2/2 acute on SOB and found to have elevated troponin Underwent cardiac cath which revealed chronic occluded RCA as well as obtuse marginal disease, recommended medical management on ASA, statin, coreg as outpt No acute cardiac symptoms and does not have any ACS Troponin elevation was noted due to stress (5) HTN (hypertension): pt significantly hypertensive in ED, likely in setting of recent mechanical ventilation titration of anesthetic per attending, improving pt on amlodipine, coreg as outpt Blood pressure is well controlled (6) CKD (chronic kidney disease), stage IV: baseline cr 2.3-2.4 bun/cr 24/2.43 Received intravenous Lasix Further Lasix doses as per wardrobe custodian (7) Psoriatic arthritis: on leflunomide as outpt (8) DVT prophylaxis: Subcu heparin Follow up: PCP Dr. Restrepo upon discharge We will transfer to telemetry unit this afternoon Subjective 02/03 The patient was seen and examined in ICU She is a 79-year-old female who has significant past medical history of COPD, chronic diastolic CHF, hypertension, CKD stage IV baseline creatinine 2.02.4, anemia of renal disease, psoriatic arthritis, PMR, secondary hyperparathyroidism, history of MGUS who presents to [facility] ED secondary to respiratory distress. She required intubation in the emergency room and was started with intravenous antibiotic for possible pneumonia She has been extubated and feeling much better as of this morning Still complains to have some shortness of breath and generalized weakness Denies any chest pain and/or palpitation Review of Systems Review of Systems: All systems reviewed and are unremarkable except as noted below Physical Exam Physical Exam: Lying in bed comfortably but generally very weak and lethargic Constitutional: well developed, well nourished, + acute distress (Minimal distress at rest due to shortness of breath), + ill appearing and + obese Eyes: PERRL, conjunctivae normal, anicteric sclerae ENMT: external ear and nose normal, oropharynx normal Neck: trachea midline, no thyromegaly Respiratory: + respiratory distress and + uses accessory muscles Auscultat ion: + diminished lung sounds and + crackles (At the bases) Cardiovascular: Rate/Rhythm: regular rate and regular rhythm Gastrointestinal (Abdomen): Inspection/Auscultation: abdomen normal to inspection and normal bowel sounds; abdomen not distended Percussion/Palp ation: abdomen soft; abdomen nontender Musculoskeletal: No acute arthritis in any joints Neurologic: Alert, awake and oriented x3. Generally very weak and lethargic Lymphatic: no cervical or axillary lymphadenopathy Results & Data Vital Signs (Past 12 Hours) Vital Signs Temp Pulse Resp BP Pulse Ox 02/03/19 11:03 94 H 125/69 97 02/03/19 10:00 98 H 162/99 H 98 02/03/19 09:33 15 02/03/19 09:00 88 135/68 98 02/03/19 08:20 80 98 02/03/19 08:10 89 96 02/03/19 08:01 89 96 02/03/19 08:00 88 142/65 H 96 02/03/19 07:33 93 H 123/101 H 98 02/03/19 07:00 36.5 C 75 156/84 H 96 02/03/19 06:40 83 02/03/19 06:34 81 152/91 H 95 02/03/19 06:00 74 180/104 H 98 02/03/19 05:25 98 H 15 96 02/03/19 05:01 66 95 02/03/19 05:00 67 132/69 95 02/03/19 04:12 69 19 96 02/03/19 04:01 69 99 02/03/19 04:00 36.5 C 67 153/78 H 99 02/03/19 03:01 68 98 02/03/19 03:00 75 128/83 96 02/03/19 02:01 60 95 02/03/19 02:00 62 129/67 95 02/03/19 01:45 58 L 16 95 02/03/19 01:01 68 97 02/03/19 01:00 62 118/79 97 Laboratory Results Short CBC 02/03/19 Range/Units 03:58 WBC 13.01 H (4.8-10.8) K/uL Hgb 10.4 L (12.0-16.0) g/dL Hct 32.1 L (37-47) % Plt Count 287 (130-400) K/uL BMP 02/03/19 03:58 Sodium 138 Potassium 4.4 Chloride 109 H Carbon Dioxide 19 L BUN 32 H Creatinine 2.70 H Glucose 146 H Calcium 8.7 Cardiac Enzymes 02/02/19 02/03/19 02/03/19 Range/Units 17:26 01:05 09:05 Troponin I 0.190 H* 0.198 H* 0.124 H* (0-0.045) ng/ml Liver Function 02/03/19 Range/Units 03:58 Total Bilirubin 0.4 (0.2-1) mg/dl AST 19 (15-37) U/L ALT 13 (12-78) U/L Alkaline Phosphatase 144 H (45-117) U/L Albumin 3.0 L (3.4-5.0) gm/dl Medications Administered Current Inpatient Medications Acetaminophen (Tylenol) 500 mg PO Q6H PRN PRN Reason: Pain Stop: 03/05/19 09:56 Amlodipine Besylate (Norvasc) 10 mg PO DAILY GOOD Stop: 03/05/19 08:59 Last Admin: 02/03/19 09:16 Dose: 10 mg Documented by: Atorvastatin Calcium (Lipitor) 80 mg PO DAILY GOOD Stop: 03/06/19 08:59 Carvedilol (Coreg) 12.5 mg PO BID GOOD Stop: 03/04/19 20:59 Last Admin: 02/03/19 09:16 Dose: 12.5 mg Documented by: Cyanocobalamin (Vitamin B-12) 1,000 mcg PO DAILY GOOD Stop: 03/06/19 08:59 Heparin Sodium (Porcine) (Heparin Sodium (Porcine)) 5,000 units SQ Q12 GOOD Stop: 03/05/19 20:59 Furosemide 20 mg/ Syringe 2 mls @ 4 mls/min IV BID GOOD Stop: 03/04/19 14:59 Last Admin: 02/02/19 20:35 Dose: 4 mls/min Documented by: Isosorbide Mononitrate (Imdur Extended Rel) 30 mg PO DAILY GOOD Stop: 03/06/19 08:59 Levothyroxine Sodium (Synthroid) 150 mcg PO DAILYBB GOOD Stop: 03/06/19 06:29 Miscellaneous (Icu Protocol For Hyperglycemia) 1 ea N/A PRN PRN; Protocol PRN Reason: Hyperglycemia Protocol Stop: 02/04/19 11:56 Vitamin D (Vitamin D3) 1,000 units PO DAILY GOOD Stop: 03/06/19 08:59
--- NOTE | 2019-02-03 14:08 | Cardiology Progress Note ---
Date of Service February 03, 2019 Assessment & Plan (1) Diastolic heart failure secondary to hypertension: (2) Acute respiratory failure with hypoxia: (3) HTN (hypertension): (4) CAD (coronary artery disease): (5) CKD (chronic kidney disease), stage IV: The patient is clinically stable. The echocardiogram performed while the patient was intubated and in the acute setting likely to improve in regard to systolic function. Believe the patient's events resulted from acute diastolic dysfunction, hypertension and chronic stage IV kidney disease. Her troponins were borderline elevated and I believe that this is a type II elevation from stress. Moving forward, agree that she can be transferred to regular floor. She is back on her antihypertensive medications and may have not been completely compliant with these medications. She sees a retail banking manager from [facility] in [place]. She lives in [place] and although she really likes her retail banking manager, I believe someone local should see her as she is likely to require dialysis in the future. I would continue her current medications. I think we should follow-up an echocardiogram at a future date to reevaluate her LV function. Subjective The patient was extubated today. She is comfortably sitting in a chair. She has no new cardiac complaints. Review of Systems Review of Systems: All systems reviewed & are unremarkable except as noted in HPI & below Nothing additional to add. Physical Exam Physical Exam: General: no acute distress and stated age Head: normocephalic, no masses, lesions, tenderness or abnormalities Eyes: conjunctiva are pink and non-injected, sclera clear Neck: supple, no adenopathy, no bruits, normal jugular venous pulse, no hepatojugular reflux Chest: normal shape and normal respiratory effort Lungs: clear to auscultation and percussion Cardiac Exam: - regular rate & rhythm, no murmurs gallops or rubs - normal S1, normal S2 Pulses: 2(+) throughout Abdomen: abdomen soft, non-tender, no abnormal masses and no hepatosplenomegaly Musculoskeletal: no gait disturbance, no joint inflammation, no deforming arthritis Extremities: no edema and no cyanosis Neuro: grossly normal exam Results & Data Vital Signs (Past 12 Hours) Vital Signs Temp Pulse Resp BP Pulse Ox 02/03/19 13:00 91 H 138/79 95 02/03/19 12:00 91 H 140/80 98 02/03/19 11:03 94 H 125/69 97 02/03/19 10:00 98 H 162/99 H 98 02/03/19 09:33 15 02/03/19 09:00 88 135/68 98 02/03/19 08:20 80 98 02/03/19 08:10 89 96 02/03/19 08:01 89 96 02/03/19 08:00 88 142/65 H 96 02/03/19 07:33 93 H 123/101 H 98 02/03/19 07:00 36.5 C 75 156/84 H 96 02/03/19 06:40 83 02/03/19 06:34 81 152/91 H 95 02/03/19 06:00 74 180/104 H 98 02/03/19 05:25 98 H 15 96 02/03/19 05:01 66 95 02/03/19 05:00 67 132/69 95 02/03/19 04:12 69 19 96 02/03/19 04:01 69 99 02/03/19 04:00 36.5 C 67 153/78 H 99 02/03/19 03:01 68 98 02/03/19 03:00 75 128/83 96 Laboratory Results Laboratory Results - last 24 hr 02/02/19 02/02/19 02/02/19 17:26 17:46 19:22 WBC RBC Hgb Hct MCV MCH MCHC RDW Std Deviation RDW Coeff of Rosa Plt Count MPV Immature Gran % (Auto) Neut % (Auto) Lymph % (Auto) [place] % (Auto) Eos % (Auto) Baso % (Auto) Immature Gran # (Auto) Neut # (Auto) Lymph # (Auto) [place] # (Auto) Eos # (Auto) Baso # (Auto) APTT > 139.0 H* PTT Ratio > 5.1 Sample Site POC pH POC pCO2 POC pO2 POC HCO3 POC Total CO2 POC Base Excess POC ABG O2 Sat Sander Test O2 Delivery Device POC FiO2 PEEP Sodium Potassium Chloride Carbon Dioxide Anion Gap BUN Creatinine Est Cr Clr Drug Dosing Est GFR ( Amer) Est GFR (Non-Af Amer) BUN/Creatinine Ratio Glucose POC Glucose 147 H Calcium Phosphorus Magnesium Total Bilirubin AST ALT Alkaline Phosphatase Troponin I 0.190 H* Total Protein Albumin Globulin Albumin/Globulin Ratio 02/02/19 02/02/19 02/03/19 21:02 23:55 01:05 WBC RBC Hgb Hct MCV MCH MCHC RDW Std Deviation RDW Coeff of Rosa Plt Count MPV Immature Gran % (Auto) Neut % (Auto) Lymph % (Auto) [place] % (Auto) Eos % (Auto) Baso % (Auto) Immature Gran # (Auto) Neut # (Auto) Lymph # (Auto) [place] # (Auto) Eos # (Auto) Baso # (Auto) APTT 49.6 H* PTT Ratio 1.8 Sample Site POC pH POC pCO2 POC pO2 POC HCO3 POC Total CO2 POC Base Excess POC ABG O2 Sat Sander Test O2 Delivery Device POC FiO2 PEEP Sodium Potassium Chloride Carbon Dioxide Anion Gap BUN Creatinine Est Cr Clr Drug Dosing Est GFR ( Amer) Est GFR (Non-Af Amer) BUN/Creatinine Ratio Glucose POC Glucose 132 H Calcium Phosphorus Magnesium Total Bilirubin AST ALT Alkaline Phosphatase Troponin I 0.198 H* Total Protein Albumin Globulin Albumin/Globulin Ratio 02/03/19 02/03/19 02/03/19 03:58 03:58 03:58 WBC 13.01 H RBC 3.47 L Hgb 10.4 L Hct 32.1 L MCV 92.5 MCH 30.0 MCHC 32.4 RDW Std Deviation 47.2 H RDW Coeff of Rosa 14.1 Plt Count 287 MPV 10.6 H Immature Gran % (Auto) 0.2 Neut % (Auto) 85.9 Lymph % (Auto) 8.8 [place] % (Auto) 5.1 Eos % (Auto) 0.0 Baso % (Auto) 0.0 Immature Gran # (Auto) 0.02 Neut # (Auto) 11.18 H Lymph # (Auto) 1.14 L [place] # (Auto) 0.67 H Eos # (Auto) 0.00 Baso # (Auto) 0.00 APTT 41.0 H PTT Ratio 1.5 Sample Site POC pH POC pCO2 POC pO2 POC HCO3 POC Total CO2 POC Base Excess POC ABG O2 Sat Sander Test O2 Delivery Device POC FiO2 PEEP Sodium 138 Potassium 4.4 Chloride 109 H Carbon Dioxide 19 L Anion Gap 10.0 BUN 32 H Creatinine 2.70 H Est Cr Clr Drug Dosing 19.8 Est GFR ( Amer) 18.9 Est GFR (Non-Af Amer) 16.3 BUN/Creatinine Ratio 11.7 Glucose 146 H POC Glucose Calcium 8.7 Phosphorus 5.7 H Magnesium 2.0 Total Bilirubin 0.4 AST 19 ALT 13 Alkaline Phosphatase 144 H Troponin I Total Protein 7.9 Albumin 3.0 L Globulin 4.9 H Albumin/Globulin Ratio 0.6 L 02/03/19 02/03/19 02/03/19 05:44 05:45 09:05 WBC RBC Hgb Hct MCV MCH MCHC RDW Std Deviation RDW Coeff of Rosa Plt Count MPV Immature Gran % (Auto) Neut % (Auto) Lymph % (Auto) [place] % (Auto) Eos % (Auto) Baso % (Auto) Immature Gran # (Auto) Neut # (Auto) Lymph # (Auto) [place] # (Auto) Eos # (Auto) Baso # (Auto) APTT PTT Ratio Sample Site L Radial POC pH 7.37 POC pCO2 30 L POC pO2 78 L POC HCO3 18 L POC Total CO2 18 L POC Base Excess -8.0 POC ABG O2 Sat 95.0 Sander Test Pass O2 Delivery Device Ventilator POC FiO2 30 PEEP 5 Sodium Potassium Chloride Carbon Dioxide Anion Gap BUN Creatinine Est Cr Clr Drug Dosing Est GFR ( Amer) Est GFR (Non-Af Amer) BUN/Creatinine Ratio Glucose POC Glucose 161 H Calcium Phosphorus Magnesium Total Bilirubin AST ALT Alkaline Phosphatase Troponin I 0.124 H* Total Protein Albumin Globulin Albumin/Globulin Ratio 02/03/19 10:53 WBC RBC Hgb Hct MCV MCH MCHC RDW Std Deviation RDW Coeff of Rosa Plt Count MPV Immature Gran % (Auto) Neut % (Auto) Lymph % (Auto) [place] % (Auto) Eos % (Auto) Baso % (Auto) Immature Gran # (Auto) Neut # (Auto) Lymph # (Auto) [place] # (Auto) Eos # (Auto) Baso # (Auto) APTT 41.0 H PTT Ratio 1.5 Sample Site POC pH POC pCO2 POC pO2 POC HCO3 POC Total CO2 POC Base Excess POC ABG O2 Sat Sander Test O2 Delivery Device POC FiO2 PEEP Sodium Potassium Chloride Carbon Dioxide Anion Gap BUN Creatinine Est Cr Clr Drug Dosing Est GFR ( Amer) Est GFR (Non-Af Amer) BUN/Creatinine Ratio Glucose POC Glucose Calcium Phosphorus Magnesium Total Bilirubin AST ALT Alkaline Phosphatase Troponin I Total Protein Albumin Globulin Albumin/Globulin Ratio Medications Administered Current Inpatient Medications Acetaminophen (Tylenol) 500 mg PO Q6H PRN PRN Reason: Pain Stop: 03/05/19 09:56 Amlodipine Besylate (Norvasc) 10 mg PO DAILY GOOD Stop: 03/05/19 08:59 Last Admin: 02/03/19 09:16 Dose: 10 mg Documented by: Atorvastatin Calcium (Lipitor) 80 mg PO DAILY GOOD Stop: 03/06/19 08:59 Carvedilol (Coreg) 12.5 mg PO BID GOOD Stop: 03/04/19 20:59 Last Admin: 02/03/19 09:16 Dose: 12.5 mg Documented by: Cyanocobalamin (Vitamin B-12) 1,000 mcg PO DAILY GOOD Stop: 03/06/19 08:59 Heparin Sodium (Porcine) (Heparin Sodium (Porcine)) 5,000 units SQ Q12 GOOD Stop: 03/05/19 20:59 Furosemide 20 mg/ Syringe 2 mls @ 4 mls/min IV BID GOOD Stop: 03/04/19 14:59 Last Admin: 02/02/19 20:35 Dose: 4 mls/min Documented by: Isosorbide Mononitrate (Imdur Extended Rel) 30 mg PO DAILY GOOD Stop: 03/06/19 08:59 Levothyroxine Sodium (Synthroid) 150 mcg PO DAILYBB GOOD Stop: 03/06/19 06:29 Miscellaneous (Icu Protocol For Hyperglycemia) 1 ea N/A PRN PRN; Protocol PRN Reason: Hyperglycemia Protocol Stop: 02/04/19 11:56 Vitamin D (Vitamin D3) 1,000 units PO DAILY GOOD Stop: 03/06/19 08:59
--- NOTE | 2019-02-03 14:21 | Billing Data ---
Coding Level of Care Code 01681 Subseq Hosp Care Lvl 3
[2019-02-03] MEDS: HEPARIN SOD 5,000 UNIT/0.5 ML VIAL SQ SCH (19:41)
[2019-02-04] MEDS ORDERED: ALBUT/IPRATROP 3MG/0.5MG NEB 3 ML VIAL NEB STA (03:58)
[2019-02-04] MEDS: LEVOTHYROXINE SODIUM 150 MCG TABLET PO SCH (05:34)
[2019-02-04] MEDS: ISOSORBIDE MONO EXTENDED REL 30 MG TABCR PO SCH (05:37)
--- NOTE | 2019-02-04 07:05 | XRay Report ---
SINGLE VIEW CHEST CLINICAL HISTORY: Dyspnea. FINDINGS: An AP, portable, upright chest radiograph is compared to study dated 02/03/2019. The examin ation is degraded by portable technique and patient rotation. Endotracheal and enteric tubes have b een removed. The heart is enlarged. There is mild pulmonary vascular congestion. Atelectasis is noted at the lung bases. No airspace consolidation or large pleural effusion is identified. No pneumothora x is seen. The skeletal structures are osteopenic. The bony thorax is grossly intact. IMPRESSION: 1. Cardiomegaly with mild pulmonary vascular congestion. 2. Endotracheal and enteric tubes have been removed. Electronically signed by: Ron Lopes M.D. 02/04/2019 7:04 AM
[2019-02-04] MEDS: ALBUT/IPRATROP 3MG/0.5MG NEB 3 ML VIAL NEB PRN ×2 (07:13→12:13)
[2019-02-04 07:15] LABS: Basophils # (auto) 0.01 K/uL (0-0.2); Basophils % (auto) 0.1 %; Eosinophils # (auto) 0.03 K/uL (0-0.5); Eosinophils % (auto) 0.3 %; Hematocrit (blood only) 28.3 % (37-47); Hemoglobin 9.2 g/dL (12.0-16.0); Immature Granulocytes # (auto) 0.02 K/uL (0.00-0.02); Immature Granulocytes % (auto) 0.2 %; Lymphocytes # (auto) 1.76 K/uL (1.2-3.4); Lymphocytes % (auto) 18.7 %; Mean Corpuscular Hemoglobin 29.7 pg (25-34); Mean Corpuscular Hgb Conc 32.5 g/dL (32-36); Mean Corpuscular Volume 91.3 fL (80-100); Mean Platelet Volume 10.8 fL (7.4-10.4); Monocytes # (auto) 0.87 K/uL (0.11-0.59); Monocytes % (auto) 9.2 %; Neutrophils # (auto) 6.72 K/uL (1.4-6.5); Neutrophils % (auto) 71.5 %; Platelet Count 257 K/uL (130-400); RDW Coefficient of Variation 14.8 % (11.5-14.5); White Blood Count 9.41 K/uL (4.8-10.8)
[2019-02-04 07:40] LABS: Calcium 8.5 mg/dl (8.5-10.1); Creatinine Clr Calc Pharmacy 17.2 ml/min; Est GFR (African American) 16.5; Est GFR (Non-African American) 14.2; Magnesium 2.2 mg/dl (1.8-2.4); Potassium 3.9 mmol/L (3.5-5.1)
[2019-02-04] MEDS: CYANOCOBALAMIN 500 MCG TABLET (VITAMIN B-12) PO SCH (07:56)
[2019-02-04] MEDS: ATORVASTATIN 40 MG TAB PO SCH (07:57)
[2019-02-04] MEDS: AMLODIPINE BESYLATE 5 MG TAB PO SCH (07:57)
[2019-02-04] MEDS: CHOLECALCIFEROL 1,000 UNITS TAB PO SCH (07:57)
[2019-02-04] MEDS: carvediloL 12.5 MG TAB PO SCH ×2 (07:57→19:29)
[2019-02-04] MEDS: HEPARIN SOD 5,000 UNIT/0.5 ML VIAL SQ SCH ×2 (07:58→19:29)
[2019-02-04] MEDS ORDERED: ISOSORBIDE MONO EXTENDED REL 30 MG TABCR PO SCH (09:00)
[2019-02-04] MEDS ORDERED: FUROSEMIDE 20 MG in SYRINGE 0 ML IV ONE (09:14)
--- NOTE | 2019-02-04 10:42 | Nephrology Consultation ---
Date of Consultation February 04, 2019 Assessment & Plan (1) TOSHA (acute kidney injury): Patient with acute kidney injury on CKD. Creatinine up to 3 today from a baseline of 2.4. This is likely cardiorenal syndrome. Electrolytes are stable. No indication for dialysis today. We will continue to monitor renal function closely. -Avoid nephrotoxins unless lifesaving -Daily BMP (2) Diastolic heart failure secondary to hypertension: Patient is even on current dose of Lasix. -Increase Lasix to 40 mg IV twice daily. -Monitor input output and daily weight -Maintain a low-salt diet. (3) HTN (hypertension): Blood pressure is controlled on current regimen. No changes. History of Present Illness Reason for Consultation: Acute kidney injury on CKD Requesting Physician: Dalia Justin MD Attending Physician: Dalia Justin MD History of Present Illness 79-year-old female here with a PMHx significant for CKD4 (bl Cr ~2.4), dCHF, [place] 2018 managed medically, MGUS dx 2002, and psoriatic arthritis who presented with shortness of breath and hypoxia and who was admitted for acute hypoxic respiratory failure requiring mechanical ventilation. She is followed by Dr. Camilo Zheng in [facility]. On admission her creatinine was 2.4 which is her baseline.. She was found to be in acute CHF exacerbation. She was intubated and subsequently extubated. She is now on Lasix 20 mg IV twice daily. She is running about even. Chest x-ray yesterday showed pulmonary vascular congestion. She still reports shortness of breath. No leg swelling. No urinary symptoms. Echocardiography on this admission showed EF of 40%. Allergies Allergy/AdvReac Type Severity Reaction Status Date / Time tramadol [From Ultram] AdvReac Intermediate Nausea Verified 02/02/19 12:45 furosemide AdvReac Unknown rash Verified 02/02/19 12:45 Home Medications Home Medications Medication Instructions Recorded Confirmed Type acetaminophen [Tylenol Extra 500 mg PO Q6H PRN 02/02/19 02/02/19 History Strength] amlodipine 10 mg PO DAILY 02/02/19 02/02/19 History aspirin 81 mg PO DAILY 02/02/19 02/02/19 History atorvastatin 80 mg PO DAILY 02/02/19 02/02/19 History carvedilol 12.5 mg PO BID 02/02/19 02/02/19 History cholecalciferol (vitamin D3) 1,000 unit PO DAILY 02/02/19 02/02/19 History [Vitamin D3] citalopram 10 mg PO DAILY 02/02/19 02/02/19 History cyanocobalamin (vitamin B-12) 1,000 mcg PO DAILY 02/02/19 02/02/19 History furosemide 20 mg PO DAILY PRN 02/02/19 02/02/19 History isosorbide mononitrate 30 mg PO DAILY 02/02/19 02/02/19 History leflunomide 10 mg PO DAILY 02/02/19 02/02/19 History levothyroxine 150 mcg PO DAILY 02/02/19 02/02/19 History loratadine [Claritin] 10 mg PO DAILY PRN 02/02/19 02/02/19 History nitroglycerin [Nitrostat] 0.4 mg SUBLINGUAL UD 02/02/19 02/02/19 History pseudoephedrine-guaifenesin 1 tab PO BID 02/02/19 02/02/19 History [Mucinex D] sodium bicarbonate 650 mg PO BID 02/02/19 02/02/19 History Patient History Medical History (Updated 02/04/19 @ 10:46 by Zeenat Pollard MD) Anemia of renal disease CAD (coronary artery disease) per records cardiac cath in [place] when visiting 2/2 to acute CHF exacerbation. Revealed chronically occluded RCA as well as obtuse marginal management medically CHF (congestive heart failure) CKD (chronic kidney disease), stage IV History of heart attack HTN (hypertension) MGUS (monoclonal gammopathy of unknown significance) PMR (polymyalgia rheumatica) Psoriatic arthritis Right-sided extracranial carotid artery stenosis Secondary hyperparathyroidism Surgical History (Updated 02/02/19 @ 12:06 by Melva Valladares PA-C) History of D&C History of lymph node biopsy hx of sentinel lymph node bx History of partial mastectomy of right breast History of tonsillectomy and adenoidectomy History of tubal ligation Family History (Updated 02/02/19 @ 12:10 by Melva Valladares PA-C) Mother Coronary heart disease Father Hypertension Stroke Social History (Updated 02/02/19 @ 12:09 by Melva Valladares PA-C) Preferred Language: Mauritian Communication Ability: Effective Beliefs That Will Affect Care: None Current Living Situation: Alone Feels Safe at Home: Yes Smoking Status: Never smoker Hx Alcohol Use: No (OCCASIONAL) Hx Substance Use: No Review of Systems Review of Systems: All systems reviewed & are unremarkable except as noted in HPI & below Physical Exam Physical Exam: General exam: Appears comfortable, no acute distress HEENT: Pupils are equal and reactive to light Neck: No JVD, neck is supple trachea is midline Respiratory system: Crackles bilaterally. Gastrointestinal: Abdomen is soft, non distended, non tender, bowel sounds are present CVS: Regular rate and rhythm. No murmurs, rubs or gallops Musculoskeletal: No joint or muscle tenderness Extremities: Non tender, no edema, peripheral pulses are present Neuro: Oriented, no tremors, no focal neurological deficits Skin: No rashes Results & Data Vital Signs (Past 12 Hours) Vital Signs Temp Pulse Pulse Pulse Resp BP Pulse Ox 02/04/19 07:50 36.8 C 86 16 141/69 H 98 02/04/19 07:13 85 16 94 02/04/19 04:32 36.7 C 80 18 136/75 93 02/04/19 04:15 72 20 95 02/03/19 23:46 78 02/03/19 23:14 36.8 C 75 18 106/59 L 93 Laboratory Results Laboratory Results - last 24 hr 02/02/19 02/03/19 02/03/19 08:56 10:53 17:17 WBC RBC Hgb Hct MCV MCH MCHC RDW Std Deviation RDW Coeff of Rosa Plt Count MPV Immature Gran % (Auto) Neut % (Auto) Lymph % (Auto) [place] % (Auto) Eos % (Auto) Baso % (Auto) Immature Gran # (Auto) Neut # (Auto) Lymph # (Auto) [place] # (Auto) Eos # (Auto) Baso # (Auto) Absolute Nucleated RBC Nucleated RBC % (auto) APTT 41.0 H PTT Ratio 1.5 Sodium Potassium Chloride Carbon Dioxide Anion Gap BUN Creatinine Est Cr Clr Drug Dosing Est GFR ( Amer) Est GFR (Non-Af Amer) BUN/Creatinine Ratio Glucose Calcium Magnesium Troponin I 0.089 H* Flow Cytometry Comment See Comment 02/04/19 02/04/19 06:27 06:27 WBC 9.41 RBC 3.10 L Hgb 9.2 L Hct 28.3 L MCV 91.3 MCH 29.7 MCHC 32.5 RDW Std Deviation 49.0 H RDW Coeff of Rosa 14.8 H Plt Count 257 MPV 10.8 H Immature Gran % (Auto) 0.2 Neut % (Auto) 71.5 Lymph % (Auto) 18.7 [place] % (Auto) 9.2 Eos % (Auto) 0.3 Baso % (Auto) 0.1 Immature Gran # (Auto) 0.02 Neut # (Auto) 6.72 H Lymph # (Auto) 1.76 [place] # (Auto) 0.87 H Eos # (Auto) 0.03 Baso # (Auto) 0.01 Absolute Nucleated RBC 0.00 Nucleated RBC % (auto) 0.0 APTT PTT Ratio Sodium 139 Potassium 3.9 Chloride 110 H Carbon Dioxide 20 L Anion Gap 9.0 BUN 49 H D Creatinine 3.03 H D Est Cr Clr Drug Dosing 17.2 Est GFR ( Amer) 16.5 Est GFR (Non-Af Amer) 14.2 BUN/Creatinine Ratio 16.0 Glucose 100 H Calcium 8.5 Magnesium 2.2 Troponin I Flow Cytometry Comment
--- NOTE | 2019-02-04 14:13 | Cardiology Progress Note ---
Date of Service February 04, 2019 Assessment & Plan (1) Diastolic heart failure secondary to hypertension: (2) Acute respiratory failure with hypoxia: (3) HTN (hypertension): (4) CAD (coronary artery disease): (5) CKD (chronic kidney disease), stage IV: Patient is improving. Nephrology consult is appreciated and it appears that she is diuresing. Hypertension is better controlled. Will need a follow- up echocardiogram at a later date. Subjective Nephrology consult appreciated. Patient continues to do well and has no new complaints. Review of Systems Review of Systems: All systems reviewed & are unremarkable except as noted in HPI & below Nothing additional to add. Physical Exam Physical Exam: General: no acute distress and stated age Head: normocephalic, no masses, lesions, tenderness or abnormalities Eyes: conjunctiva are pink and non-injected, sclera clear Neck: supple, no adenopathy, no bruits, normal jugular venous pulse, no hepatojugular reflux Chest: normal shape and normal respiratory effort Lungs: clear to auscultation and percussion Cardiac Exam: - regular rate & rhythm, no murmurs gallops or rubs - normal S1, normal S2 Pulses: 2(+) throughout Abdomen: abdomen soft, non-tender, no abnormal masses and no hepatosplenomegaly Musculoskeletal: no gait disturbance, no joint inflammation, no deforming arthritis Extremities: no edema and no cyanosis Neuro: grossly normal exam Results & Data Vital Signs (Past 12 Hours) Vital Signs Temp Pulse Pulse Resp BP Pulse Ox 02/04/19 12:14 77 19 96 02/04/19 11:25 36.5 C 84 18 139/64 02/04/19 07:50 36.8 C 86 16 141/69 H 98 02/04/19 07:13 85 16 94 02/04/19 04:32 36.7 C 80 18 136/75 93 02/04/19 04:15 72 20 95
[2019-02-04] MEDS: FUROSEMIDE 20 MG in SYRINGE 0 ML IV SCH (15:07)
--- NOTE | 2019-02-04 16:23 | Hospitalist Progress Note ---
Date of Service February 04, 2019 Assessment & Plan (1) Acute respiratory failure with hypoxia: This is a 79-year-old female who has significant past medical history of COPD, chronic diastolic CHF, hypertension, CKD stage IV baseline creatinine 2.02.4, anemia of renal disease, psoriatic arthritis, PMR, secondary hyperparathyroidism, history of MGUS who presents to [facility] ED secondary to respiratory distress. In ED patient presented in respiratory distress requiring eventual mechanical intubation Initial blood gas revealed pH 7.18, bicarb 16, PCO2 44, elevated methylhemoglobin 2.7 Influenza negative She was started with the intravenous cefepime and vancomycin on admission with a suspicion of pneumonia Repeat x-ray did not show any evidence of pneumonia and antibiotics were stopped Appreciate medical transcription radiology input and recommendation She was extubated this morning 02/03 and has been feeling a lot better She remains very weak and lethargic Remains stable as of today Denies any significant symptoms (2) Lactic acidemia: Secondary to respiratory failure (3) CHF (congestive heart failure): LVEF 68%, grade 2 diastolic dysfunction, mild concentric LVH, left atrium mildly enlarged, mild aortic valve sclerosis and mild AV regurg present echo 09/2017 Repeat echocardiogram showed: Left ventricle is grossly normal in size, there is moderate concentric LV hypertrophy, LV systolic function is moderately reduced with EF of 35 to 40%, right ventricular systolic function is normal, left atrial size is normal, right atrial size and normal, and grade 1 diastolic dysfunction 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 No ACS during this admission Appreciate cardiology input and recommendation Clinically better this morning We will continue Lasix 40 mg twice daily as per cyber systems operations specialist Monitor kidney function (4) CAD (coronary artery disease): according to [facility] records pt presented to [facility] 08/26 2/ acute on SOB and found to have elevated troponin Underwent cardiac cath which revealed chronic occluded RCA as well as obtuse marginal disease, recommended medical management on ASA, statin, coreg as outpt No acute cardiac symptoms and does not have any ACS Troponin elevation was noted due to stress (5) HTN (hypertension): pt significantly hypertensive in ED, likely in setting of recent mechanical ventilation titration of anesthetic per attending, improving pt on amlodipine, coreg as outpt Blood pressure is well controlled (6) CKD (chronic kidney disease), stage IV: baseline cr 2.3-2.4 bun/cr 24/2.43 Received intravenous Lasix We will continue intravenous Lasix 40 mg twice daily Monitor PRP (7) Psoriatic arthritis: on leflunomide as outpt (8) DVT prophylaxis: Subcu heparin Follow up: PCP Dr. Restrepo upon discharge Will get PT and OT evaluation Subjective 02/04 The patient was seen and examined in telemetry unit She has been feeling a lot better but remains generally weak and lethargic She denies any chest pain and/or palpitation She has been diuresing enough Review of Systems Review of Systems: All systems reviewed and are unremarkable except as noted below Physical Exam Physical Exam: Lying in bed comfortably Constitutional: well developed, well nourished, + acute distress (Minimal distress at rest due to shortness of breath), + ill appearing and + obese Eyes: PERRL, conjunctivae normal, anicteric sclerae ENMT: external ear and nose normal, oropharynx normal Neck: trachea midline, no thyromegaly Respiratory: + respiratory distress and + uses accessory muscles Auscultation: + diminished lung sounds and + crackles (At the bases) Cardiovascular: Rate/Rhythm: regular rate and regular rhythm Gastrointestinal (Abdomen): Inspection/Auscultation: abdomen normal to inspection and normal bowel sounds; abdomen not distended Percussion/Palpation: abdomen soft; abdomen nontender Lymphatic: no cervical or axillary lymphadenopathy Results & Data Vital Signs (Past 12 Hours) Vital Signs Temp Pulse Pulse Resp BP Pulse Ox 02/04/19 15:19 36.4 C L 72 18 130/81 92 02/04/19 12:14 77 19 96 02/04/19 11:25 36.5 C 84 18 139/64 02/04/19 07:50 36.8 C 86 16 141/69 H 98 02/04/19 07:13 85 16 94 02/04/19 04:32 36.7 C 80 18 136/75 93 Laboratory Results Short CBC 02/04/19 Range/Units 06:27 WBC 9.41 (4.8-10.8) K/uL Hgb 9.2 L (12.0-16.0) g/dL Hct 28.3 L (37-47) % Plt Count 257 (130-400) K/uL BMP 02/04/19 06:27 Sodium 139 Potassium 3.9 Chloride 110 H Carbon Dioxide 20 L BUN 49 H D Creatinine 3.03 H D Glucose 100 H Calcium 8.5 Cardiac Enzymes 02/03/19 Range/Units 17:17 Troponin I 0.089 H* (0-0.045) ng/ml Medications Administered Current Inpatient Medications Acetaminophen (Tylenol) 500 mg PO Q6H PRN PRN Reason: Pain Stop: 03/05/19 09:56 Albuterol (Duoneb) 3 ml NEB Q2H PRN PRN Reason: Wheezing Stop: 03/06/19 03:58 Last Admin: 02/04/19 12:13 Dose: 3 ml Documented by: Amlodipine Besylate (Norvasc) 10 mg PO DAILY GOOD Stop: 03/05/19 08:59 Last Admin: 02/04/19 07:57 Dose: 10 mg Documented by: Atorvastatin Calcium (Lipitor) 80 mg PO DAILY GOOD Stop: 03/06/19 08:59 Last Admin: 02/04/19 07:57 Dose: 80 mg Documented by: Carvedilol (Coreg) 12.5 mg PO BID GOOD Stop: 03/04/19 20:59 Last Admin: 02/04/19 07:57 Dose: 12.5 mg Documented by: Cyanocobalamin (Vitamin B-12) 1,000 mcg PO DAILY GOOD Stop: 03/06/19 08:59 Last Admin: 02/04/19 07:56 Dose: 1,000 mcg Documented by: Heparin Sodium (Porcine) (Heparin Sodium (Porcine)) 5,000 units SQ Q12 GOOD Stop: 03/05/19 20:59 Last Admin: 02/04/19 07:58 Dose: 5,000 units Documented by: Furosemide 40 mg/ Syringe 4 mls @ 4 mls/min IV BID GOOD Stop: 03/06/19 20:59 Isosorbide Mononitrate (Imdur Extended Rel) 30 mg PO DAILY GOOD Stop: 03/06/19 04:44 Last Admin: 02/04/19 05:37 Dose: 30 mg Documented by: Levothyroxine Sodium (Synthroid) 150 mcg PO DAILYBB GOOD Stop: 03/06/19 06:29 Last Admin: 02/04/19 05:34 Dose: 150 mcg Documented by: Vitamin D (Vitamin D3) 1,000 units PO DAILY GOOD Stop: 03/06/19 08:59 Last Admin: 02/04/19 07:57 Dose: 1,000 units Documented by:
[2019-02-04] MEDS: FUROSEMIDE 40 MG in SYRINGE 0 ML IV SCH (19:28)
[2019-02-05] MEDS: LEVOTHYROXINE SODIUM 150 MCG TABLET PO SCH (05:35)
[2019-02-05 07:10] LABS: Basophils # (auto) 0.02 K/uL (0-0.2); Basophils % (auto) 0.2 %; Eosinophils % (auto) 2.2 %; Hemoglobin 9.7 g/dL (12.0-16.0); Immature Granulocytes # (auto) 0.02 K/uL (0.00-0.02); Immature Granulocytes % (auto) 0.2 %; Lymphocytes # (auto) 2.02 K/uL (1.2-3.4); Mean Corpuscular Hemoglobin 28.8 pg (25-34); Mean Corpuscular Hgb Conc 31.3 g/dL (32-36); Monocytes # (auto) 1.09 K/uL (0.11-0.59); Monocytes % (auto) 11.9 %; Neutrophils # (auto) 5.83 K/uL (1.4-6.5); Neutrophils % (auto) 63.5 %; Platelet Count 288 K/uL (130-400); RDW Coefficient of Variation 14.4 % (11.5-14.5); RDW Standard Deviation 48.3 fL (36.4-46.3); Red Blood Count 3.37 M/uL (4.2-5.4); White Blood Count 9.18 K/uL (4.8-10.8)
[2019-02-05 07:42] LABS: BUN Creatinine Ratio 17.7 (10-20); Creatinine Clr Calc Pharmacy 17.5 ml/min; Est GFR (African American) 16.9; Est GFR (Non-African American) 14.6; Magnesium 2.2 mg/dl (1.8-2.4); Potassium 4.1 mmol/L (3.5-5.1)
[2019-02-05] MEDS: AMLODIPINE BESYLATE 5 MG TAB PO SCH (07:42)
[2019-02-05] MEDS: CYANOCOBALAMIN 500 MCG TABLET (VITAMIN B-12) PO SCH (07:42)
[2019-02-05] MEDS: FUROSEMIDE 40 MG in SYRINGE 0 ML IV SCH (07:42)
[2019-02-05] MEDS: CHOLECALCIFEROL 1,000 UNITS TAB PO SCH (07:42)
[2019-02-05] MEDS: carvediloL 12.5 MG TAB PO SCH (07:42)
[2019-02-05] MEDS: ATORVASTATIN 40 MG TAB PO SCH (07:42)
[2019-02-05] MEDS: HEPARIN SOD 5,000 UNIT/0.5 ML VIAL SQ SCH ×2 (07:43→20:25)
[2019-02-05] MEDS: ISOSORBIDE MONO EXTENDED REL 30 MG TABCR PO SCH (07:43)
--- NOTE | 2019-02-05 10:03 | Cardiology Progress Note ---
Date of Service February 05, 2019 Assessment & Plan (1) Diastolic heart failure secondary to hypertension: (2) Acute respiratory failure with hypoxia: (3) HTN (hypertension): (4) CAD (coronary artery disease): (5) CKD (chronic kidney disease), stage IV: The patient is still receiving diuretics per nephrology. She remains hypertensive. I am going to increase her carvedilol to 25 mg twice daily. Continue her other medications including amlodipine and imdur Subjective The patient has no additional complaints today. She denies shortness of breath. No chest pain. She is maintaining sinus rhythm. Review of Systems Review of Systems: All systems reviewed & are unremarkable except as noted in HPI & below Nothing additional to add Physical Exam Physical Exam: General: no acute distress and stated age Head: normocephalic, no masses, lesions, tenderness or abnormalities Eyes: conjunctiva are pink and non-injected, sclera clear Neck: supple, no adenopathy, no bruits, normal jugular venous pulse, no hepatojugular reflux Chest: normal shape and normal respiratory effort Lungs: clear to auscultation and percussion Cardiac Exam: - regular rate & rhythm, no murmurs gallops or rubs - normal S1, normal S2 Pulses: 2(+) throughout Abdomen: abdomen soft, non-tender, no abnormal masses and no hepatosplenomegaly Musculoskeletal: no gait disturbance, no joint inflammation, no deforming arthritis Extremities: no edema and no cyanosis Neuro: grossly normal exam Results & Data Vital Signs (Past 12 Hours) Vital Signs Temp Pulse Pulse Resp BP Pulse Ox 02/05/19 07:09 36.6 C 64 18 151/85 H 97 02/05/19 04:46 36.8 C 76 19 163/85 H 92 02/04/19 23:26 36.4 C L 58 L 18 134/74 95 02/04/19 23:00 58 L Laboratory Results Laboratory Results - last 24 hr 02/05/19 02/05/19 06:22 06:22 WBC 9.18 RBC 3.37 L Hgb 9.7 L Hct 31.0 L MCV 92.0 MCH 28.8 MCHC 31.3 L RDW Std Deviation 48.3 H RDW Coeff of Rosa 14.4 Plt Count 288 MPV 11.0 H Immature Gran % (Auto) 0.2 Neut % (Auto) 63.5 Lymph % (Auto) 22.0 [place] % (Auto) 11.9 Eos % (Auto) 2.2 Baso % (Auto) 0.2 Immature Gran # (Auto) 0.02 Neut # (Auto) 5.83 Lymph # (Auto) 2.02 [place] # (Auto) 1.09 H Eos # (Auto) 0.20 Baso # (Auto) 0.02 Sodium 139 Potassium 4.1 Chloride 107 Carbon Dioxide 22 Anion Gap 10.0 BUN 53 H Creatinine 2.97 H Est Cr Clr Drug Dosing 17.5 Est GFR ( Amer) 16.9 Est GFR (Non-Af Amer) 14.6 BUN/Creatinine Ratio 17.7 Glucose 102 H Calcium 9.0 Magnesium 2.2 Medications Administered Current Inpatient Medications Acetaminophen (Tylenol) 500 mg PO Q6H PRN PRN Reason: Pain Stop: 03/05/19 09:56 Albuterol (Duoneb) 3 ml NEB Q2H PRN PRN Reason: Wheezing Stop: 03/06/19 03:58 Last Admin: 02/04/19 12:13 Dose: 3 ml Documented by: Amlodipine Besylate (Norvasc) 10 mg PO DAILY GOOD Stop: 03/05/19 08:59 Last Admin: 02/05/19 07:42 Dose: 10 mg Documented by: Atorvastatin Calcium (Lipitor) 80 mg PO DAILY GOOD Stop: 03/06/19 08:59 Last Admin: 02/05/19 07:42 Dose: 80 mg Documented by: Carvedilol (Coreg) 25 mg PO BID GOOD Stop: 03/07/19 20:59 Cyanocobalamin (Vitamin B-12) 1,000 mcg PO DAILY GOOD Stop: 03/06/19 08:59 Last Admin: 02/05/19 07:42 Dose: 1,000 mcg Documented by: Heparin Sodium (Porcine) (Heparin Sodium (Porcine)) 5,000 units SQ Q12 GOOD Stop: 03/05/19 20:59 Last Admin: 02/05/19 07:43 Dose: 5,000 units Documented by: Furosemide 40 mg/ Syringe 4 mls @ 4 mls/min IV BID GOOD Stop: 03/06/19 20:59 Last Admin: 02/05/19 07:42 Dose: 4 mls/min Documented by: Isosorbide Mononitrate (Imdur Extended Rel) 30 mg PO DAILY GOOD Stop: 03/06/19 04:44 Last Admin: 02/05/19 07:43 Dose: 30 mg Documented by: Levothyroxine [facility]) [facility] Stop: 03/06/19 06:29 Last Admin: 02/05/19 05:35 Dose: 150 mcg Documented by: Vitamin D (Vitamin D3) 1,000 units PO DAILY [facility] Stop: 03/06/19 08:59 Last Admin: 02/05/19 07:42 Dose: 1,000 units Documented by:
[2019-02-05] MEDS: ALBUT/IPRATROP 3MG/0.5MG NEB 3 ML VIAL NEB PRN ×2 (13:39→21:57)
--- NOTE | 2019-02-05 14:55 | Hospitalist Progress Note ---
Date of Service February 05, 2019 Assessment & Plan (1) Acute respiratory failure with hypoxia: This is a 79-year-old female who has significant past medical history of COPD, chronic diastolic CHF, hypertension, CKD stage IV baseline creatinine 2.02.4, anemia of renal disease, psoriatic arthritis, PMR, secondary hyperparathyroidism, history of MGUS who presents to [facility] ED secondary to respiratory distress. In ED patient presented in respiratory distress requiring eventual mechanical intubation Initial blood gas revealed pH 7.18, bicarb 16, PCO2 44, elevated methylhemoglobin 2.7 Influenza negative She was started with the intravenous cefepime and vancomycin on admission with a suspicion of pneumonia Repeat x-ray did not show any evidence of pneumonia and antibiotics were stopped Appreciate manager of housekeeping input and recommendation She was extubated this morning 02/03 and has been feeling a lot better She remains very weak and lethargic Clinically a lot better today, remains weak but has been ambulating in the hallway (2) Lactic acidemia: Secondary to respiratory failure (3) CHF (congestive heart failure): LVEF 68%, grade 2 diastolic dysfunction, mild concentric LVH, left atrium mildly enlarged, mild aortic valve sclerosis and mild AV regurg present echo 09/2017 Repeat echocardiogram showed: Left ventricle is grossly normal in size, there is moderate concentric LV hypertrophy, LV systolic function is moderately reduced with EF of 35 to 40%, right ventricular systolic function is normal, left atrial size is normal, right atrial size and normal, and grade 1 diastolic dysfunction 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 No ACS during this admission Appreciate cardiology input and recommendation Clinically better this morning We will continue Lasix 40 mg twice daily as per swine extension field specialist Kidney function seems to be stable For the dose of Lasix will depend on nephrology evaluation (4) CAD (coronary artery disease): according to [facility] records pt [facility] 08/26 2/ acute on SOB and found to have elevated troponin Underwent cardiac cath which revealed chronic occluded RCA as well as obtuse marginal disease, recommended medical management on ASA, statin, coreg as outpt No acute cardiac symptoms and does not have any ACS Troponin elevation was noted due to stress (5) HTN (hypertension): pt significantly hypertensive in ED, likely in setting of recent mechanical ventilation titration of anesthetic per attending, improving pt on amlodipine, coreg as outpt Blood pressure is well controlled Coreg has been increased to 25 mg twice daily (6) CKD (chronic kidney disease), stage IV: baseline cr 2.3-2.4 bun/cr 24/2.43 Received intravenous Lasix We will continue intravenous Lasix 40 mg twice daily Monitor PRP-creatinine remains elevated at 2.97 (7) Psoriatic arthritis: on leflunomide as outpt (8) DVT prophylaxis: Subcu heparin Follow up: PCP Dr. Restrepo upon discharge Will get PT and OT evaluation Subjective 02/04 The patient was seen and examined in telemetry unit She has been feeling a lot better but remains generally weak and lethargic She denies any chest pain and/or palpitation She has been diuresing enough 02/05 Patient was seen and examined in telemetry unit She has been ambulating without any support and she feels a lot better Not yet ready to be discharged Review of Systems Review of Systems: All systems reviewed and are unremarkable except as noted below Physical Exam Physical Exam: Lying in bed without any acute discomfort Constitutional: well developed, well nourished, + ill appearing and + obese; no acute distress Eyes: PERRL, conjunctivae normal, anicteric sclerae ENMT: external ear and nose normal, oropharynx normal Neck: trachea midline, no thyromegaly Respiratory: + respiratory distress and + uses accessory muscles Auscultation: + diminished lung sounds and + crackles (At the bases) Cardiovascular: Rate/Rhythm: regular rate and regular rhythm Gastrointestinal (Abdomen): Inspection/Auscultation: abdomen normal to inspection and normal bowel sounds; abdomen not distended Percussion/Palpation: abdomen soft; abdomen nontender Musculoskeletal: No acute arthritis in any joints Lymphatic: no cervical or axillary lymphadenopathy Results & Data Vital Signs (Past 12 Hours) Vital Signs Temp Pulse Resp BP Pulse Ox 02/05/19 13:40 71 18 94 02/05/19 10:57 36.7 C 69 19 120/71 98 02/05/19 07:09 36.6 C 64 18 151/85 H 97 02/05/19 04:46 36.8 C 76 19 163/85 H 92 Laboratory Results Short CBC 02/05/19 Range/Units 06:22 WBC 9.18 (4.8-10.8) K/uL Hgb 9.7 L (12.0-16.0) g/dL Hct 31.0 L (37-47) % Plt Count 288 (130-400) K/uL BMP 11/28/19 06:22 Sodium 139 Potassium 4.1 Chloride 107 Carbon Dioxide 22 BUN 53 H Creatinine 2.97 H Glucose 102 H Calcium 9.0 Medications Administered Current Inpatient Medications Acetaminophen (Tylenol) 500 mg PO Q6H PRN PRN Reason: Pain Stop: 03/05/19 09:56 Albuterol (Duoneb) 3 ml NEB Q2H PRN PRN Reason: Wheezing Stop: 03/06/19 03:58 Last Admin: 02/05/19 13:39 Dose: 3 ml Documented by: Amlodipine Besylate (Norvasc) 10 mg PO DAILY [facility] Stop: 03/05/19 08:59 Last Admin: 02/05/19 07:42 Dose: 10 mg Documented by: Atorvastatin Calcium (Lipitor) 80 mg PO DAILY [facility] Stop: 03/06/19 08:59 Last Admin: 02/05/19 07:42 Dose: 80 mg Documented by: Carvedilol (Coreg) 25 mg PO BID [facility] Stop: 03/07/19 20:59 Cyanocobalamin (Vitamin B-12) 1,000 mcg PO DAILY [facility] Stop: 03/06/19 08:59 Last Admin: 02/05/19 07:42 Dose: 1,000 mcg Documented by: Heparin Sodium (Porcine) (Heparin Sodium (Porcine)) 5,000 units SQ Q12 [facility] Stop: 03/05/19 20:59 Last Admin: 02/05/19 07:43 Dose: 5,000 units Documented by: Furosemide 40 mg/ Syringe 4 mls @ 4 mls/min IV BID GOOD Stop: 03/06/19 20:59 Last Admin: 02/05/19 07:42 Dose: 4 mls/min Documented by: Isosorbide Mononitrate (Imdur Extended Rel) 30 mg PO DAILY [facility] Stop: 03/06/19 04:44 Last Admin: 02/05/19 07:43 Dose: 30 mg Documented by: Levothyroxine Sodium (Synthroid) 150 mcg PO DAILYBB [facility] Stop: 03/06/19 06:29 Last Admin: 02/05/19 05:35 Dose: 150 mcg Documented by: Vitamin D (Vitamin D3) 1,000 units PO DAILY [facility] Stop: 03/06/19 08:59 Last Admin: 02/05/19 07:42 Dose: 1,000 units Documented by:
[2019-02-05] MEDS: carvediloL 25 MG TAB PO SCH (20:26)
[2019-02-05] MEDS ORDERED: FUROSEMIDE 80 MG TAB PO ONE (21:00)
[2019-02-06] MEDS: LEVOTHYROXINE SODIUM 150 MCG TABLET PO SCH (05:37)
[2019-02-06 06:37] LABS: Basophils # (auto) 0.02 K/uL (0-0.2); Basophils % (auto) 0.2 %; Eosinophils # (auto) 0.42 K/uL (0-0.5); Eosinophils % (auto) 5.1 %; Hematocrit (blood only) 31.2 % (37-47); Hemoglobin 10.1 g/dL (12.0-16.0); Immature Granulocytes # (auto) 0.02 K/uL (0.00-0.02); Immature Granulocytes % (auto) 0.2 %; Lymphocytes # (auto) 1.93 K/uL (1.2-3.4); Lymphocytes % (auto) 23.6 %; Mean Corpuscular Hemoglobin 29.6 pg (25-34); Mean Corpuscular Hgb Conc 32.4 g/dL (32-36); Mean Corpuscular Volume 91.5 fL (80-100); Mean Platelet Volume 10.5 fL (7.4-10.4); Monocytes # (auto) 1.03 K/uL (0.11-0.59); Monocytes % (auto) 12.6 %; Neutrophils # (auto) 4.76 K/uL (1.4-6.5); Neutrophils % (auto) 58.3 %; Platelet Count 282 K/uL (130-400); RDW Standard Deviation 46.4 fL (36.4-46.3); Red Blood Count 3.41 M/uL (4.2-5.4); White Blood Count 8.18 K/uL (4.8-10.8)
[2019-02-06 07:08] LABS: BUN Creatinine Ratio 18.9 (10-20); Calcium 8.6 mg/dl (8.5-10.1); Est GFR (African American) 15.1; Potassium 4.1 mmol/L (3.5-5.1)
[2019-02-06] MEDS: carvediloL 25 MG TAB PO SCH ×2 (08:07→20:41)
[2019-02-06] MEDS: ISOSORBIDE MONO EXTENDED REL 30 MG TABCR PO SCH (08:07)
[2019-02-06] MEDS: AMLODIPINE BESYLATE 5 MG TAB PO SCH (08:07)
[2019-02-06] MEDS: ATORVASTATIN 40 MG TAB PO SCH (08:08)
[2019-02-06] MEDS: HEPARIN SOD 5,000 UNIT/0.5 ML VIAL SQ SCH ×2 (08:08→20:41)
[2019-02-06] MEDS: CYANOCOBALAMIN 500 MCG TABLET (VITAMIN B-12) PO SCH (08:08)
[2019-02-06] MEDS: CHOLECALCIFEROL 1,000 UNITS TAB PO SCH (08:08)
[2019-02-06] MEDS ORDERED: FUROSEMIDE 80 MG TAB PO SCH (09:00)
[2019-02-06] MEDS ORDERED: COUGH DROP (SUGAR FREE) LOZ 24 LOZ/1 BOX BUCCAL PRN (09:48)
--- NOTE | 2019-02-06 10:20 | XRay Report ---
TWO VIEW CHEST CLINICAL HISTORY: Congestive heart failure. FINDINGS: PA and lateral chest radiographs are compared to study dated 02/04/2019. The heart is enlar ged. Pulmonary vascular congestion has resolved from previous. There is minimal bibasilar atelectasis . The lungs and pleural spaces are otherwise clear. There is no pneumothorax. The skeletal structures are osteopenic. The bony thorax appears intact. IMPRESSION: 1. Cardiomegaly without radiographic evidence of congestive failure. Mild pulmonary vascular congesti on seen previously has resolved. 2. No airspace consolidation or pleural effusion is identified Electronically signed by: Ron Lopes M.D. 02/06/2019 10:19 AM
--- NOTE | 2019-02-06 10:30 | Nephrology Progress Note ---
Date of Service February 06, 2019 Assessment & Plan (1) TOSHA (acute kidney injury): Patient with acute kidney injury on CKD. Creatinine up to 3.2 and BUN of 61 today from a baseline creatinine of 2.4. This is likely hemodynamically mediated in setting of diuresis and CHF. Electrolytes are stable. No indication for dialysis today. We will continue to monitor renal function closely. -Avoid nephrotoxins unless lifesaving -Daily BMP -Hold off Lasix today as patient appears euvolemic. (2) Diastolic heart failure secondary to hypertension: Patient appears euvolemic but volume status assessment is a challenge. Recommend obtaining a chest x-ray today -Monitor input output and daily weight -Maintain a low-salt diet. (3) HTN (hypertension): Blood pressure is acceptable on current regimen. No changes. Subjective She feels better today, denies any shortness of breath or urinary symptoms. No leg swelling. Creatinine is up trending to 3.2 today Review of Systems Review of Systems: All systems reviewed & are unremarkable except as noted in HPI & below Physical Exam Physical Exam: General exam: Appears comfortable, no acute distress HEENT: Pupils are equal and reactive to light Neck: No JVD, neck is supple trachea is midline Respiratory system: Clear breath sounds bilaterally. Gastrointestinal: Abdomen is soft, non distended, non tender, bowel sounds are present CVS: Regular rate and rhythm. No murmurs, rubs or gallops Musculoskeletal: No joint or muscle tenderness Extremities: Non tender, no edema, peripheral pulses are present Neuro: Oriented, no tremors, no focal neurological deficits Skin: No rashes Results & Data Vital Signs (Past 12 Hours) Vital Signs Temp Pulse Pulse Resp BP Pulse Ox 02/06/19 07:25 36.4 C L 66 18 149/80 H 96 02/06/19 04:07 36.7 C 70 19 152/76 H 96 02/06/19 00:00 74 02/05/19 23:03 36.6 C 58 L 124/72 95 Laboratory Results Laboratory Results - last 24 hr 02/06/19 02/06/19 06:13 06:13 WBC 8.18 RBC 3.41 L Hgb 10.1 L Hct 31.2 L MCV 91.5 MCH 29.6 MCHC 32.4 RDW Std Deviation 46.4 H RDW Coeff of Rosa 14.0 Plt Count 282 MPV 10.5 H Immature Gran % (Auto) 0.2 Neut % (Auto) 58.3 Lymph % (Auto) 23.6 [place] % (Auto) 12.6 Eos % (Auto) 5.1 Baso % (Auto) 0.2 Immature Gran # (Auto) 0.02 Neut # (Auto) 4.76 Lymph # (Auto) 1.93 [place] # (Auto) 1.03 H Eos # (Auto) 0.42 Baso # (Auto) 0.02 Sodium 137 Potassium 4.1 Chloride 105 Carbon Dioxide 23 Anion Gap 9.0 BUN 61 H Creatinine 3.26 H Est Cr Clr Drug Dosing 16.0 Est GFR ( Amer) 15.1 Est GFR (Non-Af Amer) 13.0 BUN/Creatinine Ratio 18.9 Glucose 104 H Calcium 8.6 Magnesium 2.0
--- NOTE | 2019-02-06 11:09 | Cardiology Progress Note ---
Date of Service February 06, 2019 Assessment & Plan (1) Diastolic heart failure secondary to hypertension: (2) Acute respiratory failure with hypoxia: (3) HTN (hypertension): (4) CAD (coronary artery disease): (5) CKD (chronic kidney disease), stage IV: The patient's blood pressure is improved today and she is asymptomatic. She is up walking the halls and feels well. Her creatinine is a little higher today which is most likely her baseline. Nephrology has placed her diuretics on hold and would like her to stay an additional day which I think is appropriate until her creatinine levels out. Her hypertension seems to be better treated. From a cardiac standpoint she is stable. Subjective The patient is walking the hallways and feeling improved. The nephrology consult is appreciated and the patient is willing to stay in the hospital until things improve with her kidneys. Review of Systems Review of Systems: All systems reviewed & are unremarkable except as noted in HPI & below Nothing additional to add Physical Exam Physical Exam: General: no acute distress and stated age Head: normocephalic, no masses, lesions, tenderness or abnormalities Eyes: conjunctiva are pink and non-injected, sclera clear Neck: supple, no adenopathy, no bruits, normal jugular venous pulse, no hepatojugular reflux Chest: normal shape and normal respiratory effort Lungs: clear to auscultation and percussion Cardiac Exam: - regular rate & rhythm, no murmurs gallops or rubs - normal S1, normal S2 Pulses: 2(+) throughout Abdomen: abdomen soft, non-tender, no abnormal masses and no hepatosplenomegaly Musculoskeletal: no gait disturbance, no joint inflammation, no deforming arthritis Extremities: no edema and no cyanosis Neuro: grossly normal exam Results & Data Vital Signs (Past 12 Hours) Vital Signs Temp Pulse Pulse Resp BP Pulse Ox 02/06/19 07:25 36.4 C L 66 18 149/80 H 96 02/06/19 04:07 36.7 C 70 19 152/76 H 96 02/06/19 00:00 74 Laboratory Results Laboratory Results - last 24 hr 02/06/19 02/06/19 06:13 06:13 WBC 8.18 RBC 3.41 L Hgb 10.1 L Hct 31.2 L MCV 91.5 MCH 29.6 MCHC 32.4 RDW Std Deviation 46.4 H RDW Coeff of Rosa 14.0 Plt Count 282 MPV 10.5 H Immature Gran % (Auto) 0.2 Neut % (Auto) 58.3 Lymph % (Auto) 23.6 [place] % (Auto) 12.6 Eos % (Auto) 5.1 Baso % (Auto) 0.2 Immature Gran # (Auto) 0.02 Neut # (Auto) 4.76 Lymph # (Auto) 1.93 [place] # (Auto) 1.03 H Eos # (Auto) 0.42 Baso # (Auto) 0.02 Sodium 137 Potassium 4.1 Chloride 105 Carbon Dioxide 23 Anion Gap 9.0 BUN 61 H Creatinine 3.26 H Est Cr Clr Drug Dosing 16.0 Est GFR ( Amer) 15.1 Est GFR (Non-Af Amer) 13.0 BUN/Creatinine Ratio 18.9 Glucose 104 H Calcium 8.6 Magnesium 2.0 Medications Administered Current Inpatient Medications Acetaminophen (Tylenol) 500 mg PO Q6H PRN PRN Reason: Pain Stop: 03/05/19 09:56 Albuterol (Duoneb) 3 ml NEB Q2H PRN PRN Reason: Wheezing Stop: 03/06/19 03:58 Last Admin: 02/05/19 21:57 Dose: 3 ml Documented by: Amlodipine Besylate (Norvasc) 10 mg PO DAILY [facility] Stop: 03/05/19 08:59 Last Admin: 02/06/19 08:07 Dose: 10 mg Documented by: Atorvastatin Calcium (Lipitor) 80 mg PO DAILY [facility] Stop: 03/06/19 08:59 Last Admin: 02/06/19 08:08 Dose: 80 mg Documented by: Carvedilol (Coreg) 25 mg PO BID [facility] Stop: 03/07/19 20:59 Last Admin: 02/06/19 08:07 Dose: 25 mg Documented by: Cyanocobalamin (Vitamin B-12) 1,000 mcg PO DAILY [facility] Stop: 03/06/19 08:59 Last Admin: 02/06/19 08:08 Dose: 1,000 mcg Documented by: Heparin Sodium (Porcine) (Heparin Sodium (Porcine)) 5,000 units SQ Q12 [facility] Stop: 03/05/19 20:59 Last Admin: 02/06/19 08:08 Dose: 5,000 units Documented by: Isosorbide Mononitrate (Imdur Extended Rel) 30 mg PO DAILY [facility] Stop: 03/06/19 04:44 Last Admin: 02/06/19 08:07 Dose: 30 mg Documented by: Levothyroxine Sodium (Synthroid) 150 mcg PO DAILYBB [facility] Stop: 03/06/19 06:29 Last Admin: 02/06/19 05:37 Dose: 150 mcg Documented by: Menthol (Nice) 1 edmund [place] Q2H PRN PRN Reason: Sore Throat Stop: 03/08/19 09:47 Vitamin D (Vitamin D3) 1,000 units PO DAILY [facility] Stop: 03/06/19 08:59 Last Admin: 02/06/19 08:08 Dose: 1,000 units Documented by:
--- NOTE | 2019-02-06 14:33 | Hospitalist Progress Note ---
Date of Service February 06, 2019 Assessment & Plan (1) Acute respiratory failure with hypoxia: This is a 79-year-old female who has significant past medical history of COPD, chronic diastolic CHF, hypertension, CKD stage IV baseline creatinine 2.02.4, anemia of renal disease, psoriatic arthritis, PMR, secondary hyperparathyroidism, history of MGUS who presents to [facility] ED secondary to respiratory distress. In ED patient presented in respiratory distress requiring eventual mechanical intubation Initial blood gas revealed pH 7.18, bicarb 16, PCO2 44, elevated methylhemoglobin 2.7 Influenza negative She was started with the intravenous cefepime and vancomycin on admission with a suspicion of pneumonia Repeat x-ray did not show any evidence of pneumonia and antibiotics were stopped Appreciate interventional physiatrist input and recommendation She was extubated this morning 02/03 and has been feeling a lot better She remains very weak and lethargic Clinically a lot better today, remains weak but has been ambulating in the hallway Remains stable and denies any significant symptoms except weakness Advised to continue ambulation (2) Lactic acidemia: Secondary to respiratory failure (3) CHF (congestive heart failure): LVEF 68%, grade 2 diastolic dysfunction, mild concentric LVH, left atrium mildly enlarged, mild aortic valve sclerosis and mild AV regurg present echo 09/2017 Repeat echocardiogram showed: Left ventricle is grossly normal in size, there is moderate concentric LV hypertrophy, LV systolic function is moderately reduced with EF of 35 to 40%, right ventricular systolic function is normal, left atrial size is normal, right atrial size and normal, and grade 1 diastolic dysfunction 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 No ACS during this admission Appreciate cardiology input and recommendation Clinically better this morning We will continue Lasix 40 mg twice daily as per char filter tank tender Kidney function seems to be stable For the dose of Lasix will depend on nephrology evaluation Chest x-ray did show clearance of the pulmonary edema Will hold off any Lasix today and check PRP tomorrow The patient is agreeable to stay over the weekend in the hospital (4) CAD (coronary artery disease): according to [facility] records pt presented to [place] hosp 08/26 2/2 acute on SOB and found to have elevated troponin Underwent cardiac cath which revealed chronic occluded RCA as well as obtuse marginal disease, recommended medical management on ASA, statin, coreg as outpt No acute cardiac symptoms and does not have any ACS Troponin elevation was noted due to stress (5) HTN (hypertension): pt significantly hypertensive in ED, likely in setting of recent mechanical v entilation titration of anesthetic per attending, improving pt on amlodipine, coreg as outpt Blood pressure is well controlled Coreg has been increased to 25 mg twice daily Blood pressure seems to be improving (6) CKD (chronic kidney disease), stage IV: baseline cr 2.3-2.4 bun/cr 24/2.43 Received intravenous Lasix We will continue intravenous Lasix 40 mg twice daily Monitor PRP-creatinine remains elevated at 2.97 Renal function is worse today and we are holding off any Lasix for now (7) Psoriatic arthritis: on leflunomide as outpt (8) DVT prophylaxis: Subcu heparin Follow up: PCP Dr. Restrepo upon discharge Will get PT and OT evaluation Subjective 02/04 The patient was seen and examined in telemetry unit She has been feeling a lot better but remains generally weak and lethargic She denies any chest pain and/or palpitation She has been diuresing enough 02/05 Patient was seen and examined in telemetry unit She has been ambulating without any support and she feels a lot better Not yet ready to be discharged 02/06 Patient was seen and examined in the telemetry unit She has been feeling much better without any shortness of breath but remains generally weak and lethargic Has been ambulating reasonably well Her renal function has been worse as of today Review of Systems Review of Systems: All systems reviewed and are unremarkable except as noted below Physical Exam Physical Exam: Lying in bed without any acute distress Constitutional: well developed, well nourished, + ill appearing and + obese; no acute distress Eyes: PERRL, conjunctivae normal, anicteric sclerae ENMT: external ear and nose normal, oropharynx normal Neck: trachea midline, no thyromegaly Respiratory: + respiratory distress and + uses accessory muscles Auscultation: + diminished lung sounds and + crackles (At the bases) Cardiovascular: Rate/Rhythm: regular rate and regular rhythm Gastrointestinal (Abdomen): Inspection/Auscultation: abdomen normal to inspection and normal bowel sounds; abdomen not distended Percussion/Palpation: abdomen soft; abdomen nontender Musculoskeletal: No acute arthritis in any joints Lymphatic: no cervical or axillary lymphadenopathy Results & Data Vital Signs (Past 12 Hours) Vital Signs Temp Pulse Resp BP Pulse Ox 02/06/19 11:38 36.5 C 71 18 145/73 H 98 02/06/19 07:25 36.4 C L 66 18 149/80 H 96 02/06/19 04:07 36.7 C 70 19 152/76 H 96 Laboratory Results Short CBC 02/06/19 Range/Units 06:13 WBC 8.18 (4.8-10.8) K/uL Hgb 10.1 L (12.0-16.0) g/dL Hct 31.2 L (37-47) % Plt Count 282 (130-400) K/uL BMP 02/06/19 06:13 Sodium 137 Potassium 4.1 Chloride 105 Carbon Dioxide 23 BUN 61 H Creatinine 3.26 H Glucose 104 H Calcium 8.6 Medications Administered Current Inpatient Medications Acetaminophen (Tylenol) 500 mg PO Q6H PRN PRN Reason: Pain Stop: 03/05/19 09:56 Albuterol (Duoneb) 3 ml NEB Q2H PRN PRN Reason: Wheezing Stop: 03/06/19 03:58 Last Admin: 02/05/19 21:57 Dose: 3 ml Documented by: Amlodipine Besylate (Norvasc) 10 mg PO DAILY [facility] Stop: 03/05/19 08:59 Last Admin: 02/06/19 08:07 Dose: 10 mg Documented by: Atorvastatin Calcium (Lipitor) 80 mg PO DAILY [facility] Stop: 03/06/19 08:59 Last Admin: 02/06/19 08:08 Dose: 80 mg Documented by: Carvedilol (Coreg) 25 mg PO BID [facility] Stop: 03/07/19 20:59 Last Admin: 02/06/19 08:07 Dose: 25 mg Documented by: Cyanocobalamin (Vitamin B-12) 1,000 mcg PO DAILY [facility] Stop: 03/06/19 08:59 Last Admin: 02/06/19 08:08 Dose: 1,000 mcg Documented by: Heparin Sodium (Porcine) (Heparin Sodium (Porcine)) 5,000 units SQ Q12 [facility] Stop: 03/05/19 20:59 Last Admin: 02/06/19 08:08 Dose: 5,000 units Documented by: Isosorbide Mononitrate (Imdur Extended Rel) 30 mg PO DAILY [facility] Stop: 03/06/19 04:44 Last Admin: 02/06/19 08:07 Dose: 30 mg Documented by: Levothyroxine Sodium (Synthroid) 150 mcg PO [facility]ILY[facility] Stop: 03/06/19 06:29 Last Admin: 02/06/19 05:37 Dose: 150 mcg Documented by: Menthol (Nice) 1 edmund BUCCAL Q2H PRN PRN Reason: Sore Throat Stop: 03/08/19 09:47 Vitamin D (Vitamin D3) 1,000 units PO DAILY [facility] Stop: 03/06/19 08:59 Last Admin: 02/06/19 08:08 Dose: 1,000 units Documented by:
[2019-02-06] MEDS: COUGH DROP (SUGAR FREE) LOZ 24 LOZ/1 BOX BUCCAL ONE ×2 (16:36→16:37)
[2019-02-07] MEDS: LEVOTHYROXINE SODIUM 150 MCG TABLET PO SCH (06:21)
[2019-02-07] MEDS: CHOLECALCIFEROL 1,000 UNITS TAB PO SCH (07:43)
[2019-02-07] MEDS: carvediloL 25 MG TAB PO SCH (07:43)
[2019-02-07] MEDS: ISOSORBIDE MONO EXTENDED REL 30 MG TABCR PO SCH (07:43)
[2019-02-07] MEDS: HEPARIN SOD 5,000 UNIT/0.5 ML VIAL SQ SCH (07:44)
[2019-02-07] MEDS: ATORVASTATIN 40 MG TAB PO SCH (07:44)
[2019-02-07] MEDS: CYANOCOBALAMIN 500 MCG TABLET (VITAMIN B-12) PO SCH (07:45)
[2019-02-07] MEDS: AMLODIPINE BESYLATE 5 MG TAB PO SCH (07:45)
[2019-02-07 08:09] LABS: BUN Creatinine Ratio 19.4 (10-20); Calcium 8.9 mg/dl (8.5-10.1); Creatinine Clr Calc Pharmacy 15.6 ml/min; Est GFR (African American) 14.6; Est GFR (Non-African American) 12.6; Magnesium 2.1 mg/dl (1.8-2.4); Potassium 4.2 mmol/L (3.5-5.1)
--- NOTE | 2019-02-07 09:35 | Cardiology Progress Note ---
Date of Service February 07, 2019 Assessment & Plan (1) Diastolic heart failure secondary to hypertension: (2) CAD (coronary artery disease): (3) TOSHA (acute kidney injury): The patient has a history of coronary heart disease, with cardiac catheterization having taken place while visiting in [place] in the summer 2017 and presented with chest discomfort and acute shortness of breath at that time. She underwent cardiac catheterization during that admission revealing a chronically occluded right coronary artery and minor disease of the obtuse marginal branch of the left circumflex for which medical management was recommended. She has a history of previously noted normal LVEF, left ventricular hypertrophy on echocardiogram and grade 2 diastolic dysfunction. She presented with acute respiratory insufficiency with pulmonary edema, prompting ventilator support, echocardiogram this admission revealed moderate LV systolic dysfunction. Patient has responded well to diuresis, blood pressures are well controlled, she was extubated, and is now feeling better. She states that she actually feels better now than when she did a week before being in the hospital as she had noted shortness of breath with tasks such as walking her dog leading up to this hospital stay for about a month before her ultimate acute illness. Stage IV chronic kidney disease is noted at baseline, with TOSHA this admission. Medication changes have been made including increasing her carvedilol dose which is been 12.5 mg twice daily prior to his hospitalization is now 25 mg twice daily. Renal function is being observed off of diuretic therapy and creatinine remains relatively similar to yesterday with measurement of 3.34. I have ordered a repeat limited echocardiogram to reassess her LV systolic dysfunction that she is over the acute phase of her illness. Continue subcutaneous heparin for DVT prophylaxis. She is not on an RYLIE / or ARB due to her Renal insufficiency. She is on high- dose atorvastatin. Would recommend resuming her prior to hospital dose of aspirin given her diagnosis of known chronic coronary heart disease. Hemoglobin is stable at most recent measurement yesterday. I will discuss with the primary service prior to initiating aspirin. Subjective Chief complaint: Follow-up shortness of breath Subjective: Patient sitting in the bedside chair. She is comfortable. Denies chest pain or shortness of breath. Telemetry reveals sinus rhythm in the range of 50 to 60 bpm. Review of Systems Review of Systems: All systems reviewed & are unremarkable except as noted in HPI & below Physical Exam Physical Exam: Temp Pulse Resp BP Pulse Ox 36.6 C 65 16 122/80 98 02/07/19 08:21 02/07/19 08:21 02/07/19 08:21 02/07/19 08:21 02/07/19 08:21 Constitutional: WD/WN, vitals as above Respiratory: normal respiratory effort, lungs clear to auscultation Cardiovascular: RRR, no murmur, no edema Gastrointestinal (Abdomen): normal bowel sounds, soft, nontender, no hepatosplenomegaly Neurologic: PERRL, EOMI, accommodation nl, no face palsy, no dysarthria Results & Data Vital Signs (Past 12 Hours) Vital Signs Temp Pulse Resp BP Pulse Ox 02/07/19 08:21 36.6 C 65 16 122/80 98 02/07/19 04:55 36.5 C 72 16 150/73 H 95 02/06/19 23:30 36.4 C L 66 16 133/71 96 Laboratory Results Comprehensive Metabolic Panel 02/07/19 Range/Units 07:12 Sodium 136 (136-145) mmol/L Potassium 4.2 (3.5-5.1) mmol/L Chloride 106 (98-107) mmol/L Carbon Dioxide 22 (21-32) mmol/L BUN 65 H (7-18) mg/dl Creatinine 3.34 H (0.6-1.2) mg/dl Glucose 104 H (70-99) mg/dl Calcium 8.9 (8.5-10.1) mg/dl Intake and Output 02/06/19 02/07/19 02/07/19 22:59 06:59 14:59 Intake Total 360 / 810 Output Total 450 / 1450 300 / 1450 Balance -90 / -640 -300 / -640 Intake: Oral 360 / 810 Output: Urine 450 / 1450 300 / 1450 Other: Weight 82.6 kg Medications Administered Current Inpatient Medications Acetaminophen (Tylenol) 500 mg PO Q6H PRN PRN Reason: Pain Stop: 03/05/19 09:56 Albuterol (Duoneb) 3 ml NEB Q2H PRN PRN Reason: Wheezing Stop: 03/06/19 03:58 Last Admin: 02/05/19 21:57 Dose: 3 ml Documented by: Amlodipine Besylate (Norvasc) 10 mg PO DAILY [facility] Stop: 03/05/19 08:59 Last Admin: 02/07/19 07:45 Dose: 10 mg Documented by: Atorvastatin Calcium (Lipitor) 80 mg PO DAILY [facility] Stop: 03/06/19 08:59 Last Admin: 02/07/19 07:44 Dose: 80 mg Documented by: Carvedilol (Coreg) 25 mg PO BID GOOD Stop: 03/07/19 20:59 Last Admin: 02/07/19 07:43 Dose: 25 mg Documented by: Cyanocobalamin (Vitamin B-12) 1,000 mcg PO DAILY [facility] Stop: 03/06/19 08:59 Last Admin: 02/07/19 07:45 Dose: 1,000 mcg Documented by: Heparin Sodium (Porcine) (Heparin Sodium (Porcine)) 5,000 units SQ Q12 [facility] Stop: 03/05/19 20:59 Last Admin: 02/07/19 07:44 Dose: 5,000 units Documented by: Isosorbide Mononitrate (Imdur Extended Rel) 30 mg PO DAILY [facility] Stop: 03/06/19 04:44 Last Admin: 02/07/19 07:43 Dose: 30 mg Documented by: Levothyroxine Sodium (Synthroid) 150 mcg PO DAILYBB [facility] Stop: 03/06/19 06:29 Last Admin: 02/07/19 06:21 Dose: 150 mcg Documented by: Menthol (Nice) 1 edmund BUCCAL Q2H PRN PRN Reason: Sore Throat Stop: 03/08/19 09:47 Vitamin D (Vitamin D3) 1,000 units PO DAILY [facility] Stop: 03/06/19 08:59 Last Admin: 02/07/19 07:43 Dose: 1,000 units Documented by:
[2019-02-07] MEDS ORDERED: ASPIRIN 81 MG ECTAB PO SCH (11:00)
[2019-02-07] MEDS: ALBUT/IPRATROP 3MG/0.5MG NEB 3 ML VIAL NEB PRN (11:30)
--- NOTE | 2019-02-07 14:07 | Hospitalist Progress Note ---
Date of Service February 07, 2019 Assessment & Plan (1) Acute respiratory failure with hypoxia: This is a 79-year-old female who has significant past medical history of COPD, chronic diastolic CHF, hypertension, CKD stage IV baseline creatinine 2.02.4, anemia of renal disease, psoriatic arthritis, PMR, secondary hyperparathyroidism, history of MGUS who presents to [facility] ED secondary to respiratory distress. In ED patient presented in respiratory distress requiring eventual mechanical intubation Initial blood gas revealed pH 7.18, bicarb 16, PCO2 44, elevated methylhemoglobin 2.7 Influenza negative She was started with the intravenous cefepime and vancomycin on admission with a suspicion of pneumonia Repeat x-ray did not show any evidence of pneumonia and antibiotics were stopped Appreciate certifed refrigeration operator input and recommendation She was extubated this morning 02/03 and has been feeling a lot better Has been stable for the last few days with increasing strength She has been ambulating around the hallways without any significant symptoms She is not requiring any oxygen (2) Lactic acidemia: Secondary to respiratory failure (3) CHF (congestive heart failure): LVEF 68%, grade 2 diastolic dysfunction, mild concentric LVH, left atrium mildly enlarged, mild aortic valve sclerosis and mild AV regurg present echo 09/2017 Repeat echocardiogram showed: Left ventricle is grossly normal in size, there is moderate concentric LV hypertrophy, LV systolic function is moderately reduced with EF of 35 to 40%, right ventricular systolic function is normal, left atrial size is normal, right atrial size and normal, and grade 1 diastolic dysfunction 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 No ACS during this admission Appreciate cardiology input and recommendation Clinically better this morning We will continue Lasix 40 mg twice daily as per launch leader Kidney function seems to be stable For the dose of Lasix will depend on nephrology evaluation Chest x-ray did show clearance of the pulmonary edema Will hold off any Lasix today and check PRP tomorrow Her creatinine is slightly worse today but remains around 3.0 for the last few days Discussed with launch leader and she can be discharged home today and she will need to see her launch leader in about 1 week No more regular Lasix , no ARB or RYLIE inhibitor and no NSAID use-these were explained to the patient's in detail (4) CAD (coronary artery disease): according to [facility] records pt presented to [place] hosp 08/26 2/2 acute on SOB and found to have elevated troponin Underwent cardiac cath which revealed chronic occluded RCA as well as obtuse marginal disease, recommended medical management on ASA, statin, coreg as outpt No acute cardiac symptoms and does not have any ACS Troponin elevation was noted due to stress (5) HTN (hypertension): pt significantly hypertensive in ED, likely in setting of recent mechanical ventilation titration of anesthetic per attending, improving pt on amlodipine, coreg as outpt Blood pressure is well controlled Coreg has been increased to 25 mg twice daily Blood pressure seems to be improving (6) CKD (chronic kidney disease), stage IV: baseline cr 2.3-2.4 bun/cr /. Received intravenous Lasix We will continue intravenous Lasix 40 mg twice daily Monitor PRP-creatinine remains elevated at 2.97 Renal function is worse today and we are holding off any Lasix for now Creatinine is 3.34 on and it was 3.03 on of this month She will need to see her launch leader within 7 days (7) Psoriatic arthritis: on leflunomide as outpt (8) DVT prophylaxis: Subcu heparin Follow up: PCP Dr. Restrepo upon discharge Will get PT and OT evaluation She will be discharged home this afternoon Subjective 02/04 The patient was seen and examined in telemetry unit She has been feeling a lot better but remains generally weak and lethargic She denies any chest pain and/or palpitation She has been diuresing enough 02/05 Patient was seen and examined in telemetry unit She has been ambulating without any support and she feels a lot better Not yet ready to be discharged 02/06 Patient was seen and examined in the telemetry unit She has been feeling much better without any shortness of breath but remains generally weak and lethargic Has been ambulating reasonably well Her renal function has been worse as of today 02/07 The patient was seen and examined in the telemetry unit She has been feeling a lot better and her weakness is improved She has been ambulating around the hallway without any problem Wants to go home today Review of Systems Review of Systems: All systems reviewed and are unremarkable except as noted below Physical Exam Physical Exam: Sitting on a chair without any symptoms Constitutional: well developed, well nourished, + ill appearing and + obese; no acute distress Eyes: PERRL, conjunctivae normal, anicteric sclerae ENMT: external ear and nose normal, oropharynx normal Neck: trachea midline, no thyromegaly Respiratory: no respiratory distress Auscultation: lungs clear to auscultation bilaterally Cardiovascular: Rate/Rhythm: regular rate and regular rhythm Gastrointestinal (Abdomen): Inspection/Auscultation: abdomen normal to inspection and normal bowel sounds; abdomen not distended Percussion/Palpation: abdomen soft; abdomen nontender Lymphatic: no cervical or axillary lymphadenopathy Results & Data Vital Signs (Past 12 Hours) Vital Signs Temp Pulse Resp BP Pulse Ox 02/07/19 11:56 36.6 C 73 18 119/72 99 02/07/19 11:30 68 16 98 02/07/19 08:21 36.6 C 65 16 122/80 98 02/07/19 04:55 36.5 C 72 16 150/73 H 95 Laboratory Results [facility] 02/07/19 07:12 Sodium 136 Potassium 4.2 Chloride 106 Carbon Dioxide 22 BUN 65 H Creatinine 3.34 H Glucose 104 H Calcium 8.9 Medications Administered Current Inpatient Medications Acetaminophen (Tylenol) 500 mg PO Q6H PRN PRN Reason: Pain Stop: 03/05/19 09:56 Albuterol (Duoneb) 3 ml NEB Q2H PRN PRN Reason: Wheezing Stop: 03/06/19 03:58 Last Admin: 02/07/19 11:30 Dose: 3 ml Documented by: Amlodipine Besylate (Norvasc) 10 mg PO DAILY [facility] Stop: 03/05/19 08:59 Last Admin: 02/07/19 07:45 Dose: 10 mg Documented by: Aspirin (Ecotrin Ectab) 81 mg PO QAM [facility] Stop: 03/09/19 10:59 Last Admin: 02/07/19 11:50 Dose: 81 mg Documented by: Atorvastatin Calcium (Lipitor) 80 mg PO DAILY [facility] Stop: 03/06/19 08:59 Last Admin: 02/07/19 07:44 Dose: 80 mg Documented by: Carvedilol (Coreg) 25 mg PO BID [facility] Stop: 03/07/19 20:59 Last Admin: 02/07/19 07:43 Dose: 25 mg Documented by: Cyanocobalamin (Vitamin B-12) 1,000 mcg PO DAILY [facility] Stop: 03/06/19 08:59 Last Admin: 02/07/19 07:45 Dose: 1,000 mcg Documented by: Heparin Sodium (Porcine) (Heparin Sodium (Porcine)) 5,000 units SQ Q12 [facility] Stop: 03/05/19 20:59 Last Admin: 02/07/19 07:44 Dose: 5,000 units Documented by: Isosorbide Mononitrate (Imdur Extended Rel) 30 mg PO DAILY [facility] Stop: 03/06/19 04:44 Last Admin: 02/07/19 07:43 Dose: 30 mg Documented by: Levothyroxine Sodium (Synthroid) 150 mcg PO DAILYBB [facility] Stop: 03/06/19 06:29 Last Admin: 02/07/19 06:21 Dose: 150 mcg Documented by: Menthol (Nice) 1 edmund BUCCAL Q2H PRN PRN Reason: Sore Throat Stop: 03/08/19 09:47 Vitamin D (Vitamin D3) 1,000 units PO DAILY [facility] Stop: 03/06/19 08:59 Last Admin: 02/07/19 07:43 Dose: 1,000 units Documented by:
--- NOTE | 2019-02-08 08:13 | Discharge Summary ---
Date of Service February 08, 2019 Admission HPI Per Admitting Provider Patient is a 79-year-old female with a past medical history of CKD 4 baseline creatinine 2.4, diastolic CHF, MGUS diagnosed in 2002, history of [place] in 2018 medically managed, and psoriatic arthritis who presented to the hospital in acute hypoxic respiratory failure requiring mechanical ventilation. Patient was at a dermatology appointment and an otherwise normal state of health per her friend when she developed sudden onset shortness of breath and diaphoresis. Unclear whether she had chest pain at the time. She was put on pulse oximetry and found to be at 60%. EMS was called, she was put on nasal cannula oxygen and remained at 60%. She is escalated to CPAP, and BiPAP without improvement in her oxygen saturation. She was intubated and demonstrated a slow rise in SPO2. Methemoglobin levels were drawn by the ED out of concern for her slow rise in oxygen saturation. Her methemoglobin levels were mildly elevated, she is not on any methemoglobin inducing medications. She is on isosorbide mononitrate which is known to enhance the effects of methemoglobinemia, but which is not known to independently induce methemoglobinemia. On admission to the emergency department she was in a respiratory acidosis with pH 7.18, PCO2 44, oxygen 61, HCO3 16, and total CO2 18. Her checks x-ray showed multifocal edema and diffuse pulmonary edema. Her rapid flu testing was negative. Her troponin was negative, and BNP was 1.4K. D-dimer was elevated at 1800, no CT was given due to renal function. Following intubation she was hypertensive to systolic over 200, she was given fentanyl and propofol for sedation and pain control and her blood pressure normalized. She was given 1 dose of empiric cefepime, vancomycin, and methylpred 125 mg IV. Procalcitonin was negative. Sputum cultures were sent. She has a history of a similar presentation to [place] in August 2017. Cardiac cath at that time showed RCA and marginal disease which was treated medically. Her EKG at that time was normal without any signs of a left or right bundle branch block. EKG on admission to [facility] showed new right bundle branch block with some potential ST depressions and T wave inversions. Stat echocardiogram did not show any wall motion abnormalities. She has been transferred to the ICU for further care Admission Exam Per Admitting Provider Physical Exam: Constitutional: WD/WN, vitals as above, +intubated Head: Normocephalic, Atraumatic Eyes: Pupils equal b/l reactive to light, conjunctivae normal, anicteric sclerae ENMT: external ear and nose normal, oropharynx + ET Tube, + trauma to upper lip Neck: trachea midline, no thyromegaly normal visual inspection Respiratory: normal respiratory effort, lungs diminished b/l R > L bibasilar crackles R > L with crackles noted, no wheezing. Normal insp/exp effort, no accessory muscle use Cardiovascular: tachycardic rate, regular rhyhtm, no murmur, no edema Vessels: no JVD or carotid bruit Chest: normal inspection of chest Abdomen: obese abdomen, normal bowel sounds, soft, nontender, no hepatosplenomegaly Musculoskeletal: no cyanosis or clubbing Skin: no rashes, warm and dry normal turgor Neurologic: unable to exam due to intubation Psychiatric: A+Ox3, euthymic affect Lymphatic: no cervical or axillary lymphadenopathy : deferred Principal Diagnosis Acute respiratory failure-resolved, acute CHF-improved LV function, CAD, CKD stage IV Discharge Exam Constitutional well developed, well nourished, + ill appearing and + obese; no acute distress Eyes PERRL, conjunctivae normal, anicteric sclerae ENMT external ear and nose normal, oropharynx normal Neck trachea midline, no thyromegaly Respiratory no respiratory distress Auscultation: lungs clear to auscultation bilaterally Cardiovascular Rate/Rhythm: regular rate and regular rhythm Gastrointestinal (Abdomen) Inspection/Auscultation: abdomen normal to inspection and normal bowel sounds; abdomen not distended Percussion/Palpation: abdomen soft; abdomen nontender Lymphatic no cervical or axillary lymphadenopathy Discharge Data Allergies Allergy/AdvReac Type Severity Reaction Status Date / Time tramadol [From Ultram] AdvReac Intermediate Nausea Verified 02/02/19 12:45 furosemide AdvReac Unknown rash Verified 02/02/19 12:45 Consultations 02/02/19 09:51 ED Decision to Admit Stat 02/02/19 10:03 Consult Bank Advisor Routine 02/02/19 11:36 Consult Cardiology Stat 02/02/19 11:57 Consult Case Management - Discharge Planning Routine 02/03/19 14:06 Consult Nephrology Routine Ordered Studies 02/02/19 13:18 US venous doppler [facility] Urgent Hospital Course (1) Acute respiratory failure with hypoxia: This is a 79-year-old female who has significant past medical history of COPD, chronic diastolic CHF, hypertension, CKD stage IV baseline creatinine 2.02.4, anemia of renal disease, psoriatic arthritis, PMR, secondary hyperparathyroidism, history of MGUS who presents to [facility] ED secondary to respiratory distress. In ED patient presented in respiratory distress requiring eventual mechanical intubation Initial blood gas revealed pH 7.18, bicarb 16, PCO2 44, elevated methylhemoglobin 2.7 Influenza negative She was started with the intravenous cefepime and vancomycin on admission with a suspicion of pneumonia Repeat x-ray did not show any evidence of pneumonia and antibiotics were stopped Appreciate government documents librarian input and recommendation She was extubated this morning 02/03 and has been feeling a lot better Has been stable for the last few days with increasing strength She has been ambulating around the hallways without any significant symptoms She is not requiring any oxygen (2) Lactic acidemia: Secondary to respiratory failure (3) CHF (congestive heart failure): LVEF 68%, grade 2 diastolic dysfunction, mild concentric LVH, left atrium mildly enlarged, mild aortic valve sclerosis and mild AV regurg present echo 09/2017 Repeat echocardiogram showed: Left ventricle is grossly normal in size, there is moderate concentric LV hypertrophy, LV systolic function is moderately reduced with EF of 35 to 40%, right ventricular systolic function is normal, left atrial size is normal, right atrial size and normal, and grade 1 diastolic dysfunction 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 No ACS during this admission Appreciate cardiology input and recommendation Clinically better this morning We will continue Lasix 40 mg twice daily as per housing specialist Kidney function seems to be stable For the dose of Lasix will depend on nephrology evaluation Chest x-ray did show clearance of the pulmonary edema Will hold off any Lasix today and check PRP tomorrow Her creatinine is slightly worse today but remains around 3.0 for the last few days Discussed with housing specialist and she can be discharged home today and she will need to see her housing specialist in about 1 week No more regular Lasix , no ARB or RYLIE inhibitor and no NSAID use-these were explained to the patient's in detail (4) CAD (coronary artery disease): according to [facility] records pt presented to [facility] 08/26 2/2 acute on SOB and found to have elevated troponin Underwent cardiac cath which revealed chronic occluded RCA as well as obtuse marginal disease, recommended medical management on ASA, statin, coreg as outpt No acute cardiac symptoms and does not have any ACS Troponin elevation was noted due to stress (5) HTN (hypertension): pt significantly hypertensive in ED, likely in setting of recent mechanical ventilation titration of anesthetic per attending, improving pt on amlodipine, coreg as outpt Blood pressure is well controlled Coreg has been increased to 25 mg twice daily Blood pressure seems to be improving (6) CKD (chronic kidney disease), stage IV: baseline cr 2.3-2.4 bun/cr /.43 Received intravenous Lasix We will continue intravenous Lasix 40 mg twice daily Monitor PRP-creatinine remains elevated at 2.97 Renal function is worse today and we are holding off any Lasix for now Creatinine is 3.34 on and it was 3.03 on of this month She will need to see her housing specialist within 7 days (7) Psoriatic arthritis: on leflunomide as outpt (8) DVT prophylaxis: Subcu heparin Follow up: PCP Dr. Restrepo upon discharge Will get PT and OT evaluation She will be discharged home this afternoon Total Time Total Time Spent Total Time Spent (In Minutes): 35 minutes Total Time Includes: Examination of the Patient, Discharge Planning, Medication Reconciliation and Communication With Other Providers Discharge Plan Discharge Items Patient Disposition: Home - Self-Care Reason For Visit: ACUTE RESP FAILURE REQUIRING MECH VENT Discharge Diagnosis: Acute respiratory failure-resolved, acute CHF-improved LV function, CAD, CKD stage IV Condition on Discharge: Good Activity: Resume your previous activity Non-emergency contact: Primary Care Provider Call non-emergency contact if: you have any medication questions and your symptoms worsen Follow-up/Referrals: PCP,NO [Primary Care Provider] - (Please make an appointment with your primary care physician within 7 to 10 da ys. Please make an appointment with your housing specialist within 1 week. Please keep regular appointment with your desktop support specialist.) Diet: Heart Healthy and Low Sodium (2gm) Fluids: 1500ml (6 cups) Addtl Attending Provider Instructions: Do not take anyACEI/ARB or NSAID is like Advil, Aleve or ibuprofen Do not take Lasix regularly. Weigh yourself about 1-2 times a week and if your weight is more than 2 to 3 pounds from prior week you can take Lasix for a day or 2 until your care provider changes it. Pending Studies at Discharge: No Stand-Alone Forms: My [facility], Smoking Cessation Medications and DC Order Prescriptions: New carvedilol 25 mg Tablet 25 mg PO BID 30 Days Qty: 60 RF: 0 Continued atorvastatin 80 mg Tablet 80 mg PO DAILY RF: 0 citalopram 10 mg Tablet 10 mg PO DAILY RF: 0 isosorbide mononitrate 30 mg Tablet Extended Release 24 Hr 30 mg PO DAILY RF: 0 pseudoephedrine-guaifenesin [Mucinex D] 60-600 mg Tablet Extended Release 12 Hr 1 tab PO BID RF: 0 leflunomide 10 mg Tablet 10 mg PO DAILY RF: 0 acetaminophen [Tylenol Extra Strength] 500 mg Tablet 500 mg PO Q6H PRN (Reason: Pain) RF: 0 amlodipine 10 mg Tablet 10 mg PO DAILY RF: 0 levothyroxine 150 mcg Tablet 150 mcg PO DAILY RF: 0 nitroglycerin [Nitrostat] 0.4 mg Tablet, Sublingual 0.4 mg sublingual UD RF: 0 furosemide 20 mg Tablet 20 mg PO DAILY PRN (Reason: Edema) RF: 0 loratadine [Claritin] 10 mg Tablet 10 mg PO DAILY PRN (Reason: allergic rhinitis) RF: 0 cholecalciferol (vitamin D3) [Vitamin D3] 1,000 unit Tablet,Chewable 1,000 unit PO DAILY RF: 0 cyanocobalamin (vitamin B-12) 1,000 mcg Tablet 1,000 mcg PO DAILY RF: 0 aspirin 81 mg Tablet,Delayed Release (Dr/Ec) 81 mg PO DAILY RF: 0 sodium bicarbonate 650 mg Tablet 650 mg PO BID RF: 0 Changed carvedilol 12.5 mg Tablet 25 mg PO BID Qty: 0 RF: 0 Discharge Orders: Discharge Order (Routine); Ordered 02/07/19 Ordered By: Dalia Justin Admission Data Admit Date/Time: 02/02/19 10:03 Attending Provider: Dalia Justin Admit Provider: Dinora Rivero Primary Care Provider: PCP,NO Other Providers: Dinora Rivero ; Javon Monte ; Daniel Camp ; Rachel Stark Other Interventions: Discharge Summary Assessment (RN) Last Done: 02/07/19 14:38 DC Date/Time DO NOT enter until pt leaves facility: 02/07/19 03:03
== END 2019-02-07 03:03 | disposition home or self-care (01) | DRG 208 ==
LOC: ED 08:45 → SUATTDRO 10:03 → 1E 10:03 → 2S 02-03 13:02